=== PATIENT | female | born 1965 | race Caucasian/White ===

== ENCOUNTER 2016-08-03 23:26 | Emergency (ER) | payer SELFPAY ==
[~2016-08-03] VITALS: Ht 157.5 cm; Wt 105.2 kg
[~2016-08-03 23:26] MED LIST: BACTRIM-DS1 EA ORAL; HYDROCHLOROTHIA25 MG ORAL; IBUPROFEN600 MG ORAL; NORVASC10 MG ORAL; TRAMADOL HCL50 MG ORAL; UNOBMED
[2016-08-03 23:45] VITALS: BP 143/86
[2016-08-04] MEDS ORDERED: Cyclobenzaprine 10mg Tab ORAL ONE (00:15)
[2016-08-04] MEDS ORDERED: GABAPENTIN300 MG ORAL (00:19)
[2016-08-04 00:30] VITALS: BP 143/86
--- NOTE | 2016-08-07 08:25 | Emergency Room Report ---
History of Present Illness General Chief Complaint: Lower Extremity Injury Source: Patient Present Illness HPI Patient is a 51-year-old female who presented after increased right lower extremity pain. Patient reported having pain predominantly to her buttock and medial thigh area. Pain had been present for several days. She reports having increased pain after a recently moving a heavy container. She denied any fever. She denied leg pain or numbness. She reports having a prior history of diabetes. Allergies: Coded Allergies: No Known Allergies (Unverified , 08/31/15) Patient History Past Medical History: see triage record Last Menstrual Period: JUL 25 Now: No : 6 Reviewed Nursing Documentation: PMH: Agreed, PSxH: Agreed Nursing Documentation-PMH Hx Hypertension: Yes Hx Diabetes: Yes Review of Systems All Other Systems: negative except mentioned in HPI Physical Exam Vital Signs Date Time Temp Pulse Resp B/P Pulse Ox O2 Delivery O2 Flow Rate FiO2 08/03/16 23:31 98.1 73 18 143/86 98 Room Air General Appearance: well appearing, no apparent distress, alert, GCS 15 Head: normocephalic, atraumatic ENT: hearing grossly normal, normal voice Neck: full range of motion, supple Respiratory: no respiratory distress, speaking full sentences Cardiovascular #1: normal inspection, regular rate, rhythm Gastrointestinal: normal inspection, normal bowel sounds, non tender, soft Musculoskeletal: normal inspection, back normal, digits/nails normal, no calf tenderness Neurologic: normal inspection, oriented x3, responsive, executive creative director III-XII nml as tested, normal gait Psychiatric: mood/affect normal Skin: no rash Medical Decision Making Diagnostic Impression: Primary Impression: Sciatica ER Course Patient presented for back pain. Differential diagnosis included but was not limited to herniated disc, cauda equina syndrome, abdominal aortic aneurysm, perforated ulcer, spinal epidural abscess, spinal stenosis, lumbar fracture, metastatic lesion, pyelonephritis. Patient's benign exam and does not appear to require any further imaging or laboratory testing at this time. Patient appeared to have some sciatica. The patient was given Flexeril while in emergency department. She was given a prescription for Neurontin. The patient is advised to follow up with primary care doctor in 1-2 days. Patient is advised to return if any worsening condition or if any changes in status that are concerning. Last Vital Signs Date Time Temp Pulse Resp B/P Pulse Ox O2 Delivery O2 Flow Rate FiO2 08/04/16 00:30 98.1 75 18 143/86 98 Room Air Status: improved Disposition: HOME, SELF-CARE Condition: Stable Scripts Gabapentin* (GABAPENTIN*) 300 Mg Capsule 300 MG ORAL THREE TIMES A DAY, #30 CAP 0 Refills Prov: Hernandez Hansen 08/04/16 Referrals: NOT CHOSEN IPA/MD,REFERRING (PCP) Departure Forms: Return to Work Return to Work in (Days): 2 Patient Instructions: Hernandez Landrum Aug 07, 2016 08:25
== END 2016-08-04 00:30 | disposition home or self-care (01) ==
LOC: EMR 23:56
DX: M54.30 Sciatica, unspecified side (principal); E11.9 Type 2 diabetes mellitus without complications; I10 Essential (primary) hypertension
CPT/HCPCS: 99283

== ENCOUNTER 2016-09-07 16:01 | Inpatient (IN) | payer MEDICAID ==
[~2016-09-07] VITALS: Ht 157.5 cm; Wt 104.3 kg
[~2016-09-07 16:01] MED LIST changes: +GABAPENTIN300 MG ORAL
[2016-09-07] MEDS ORDERED: ENALAPRIL MALEA10 MG ORAL (16:19)
[2016-09-07] MEDS ORDERED: CARVEDILOL3.125 MG ORAL (16:19)
[2016-09-07 16:25] VITALS: BP 140/93
[2016-09-07] MEDS ORDERED: Mylanta II UD 30ml ORAL ONE (16:30)
[2016-09-07] MEDS ORDERED: Lidocaine 2% Visc 15ml soln ORAL ONE (16:30)
[2016-09-07] MEDS ORDERED: Dicyclomine HCl 10mg/5ml oral soln ORAL ONE (16:30)
[2016-09-07] MEDS ORDERED: Famotidine 20 MG/ 2ML VIAL IVP ONE (16:30)
[2016-09-07 17:15] LABS: BASOPHILS % (AUTO) 0.8 % (0.0-2.0); EOSINOPHILS % (AUTO) 2.6 % (0.0-3.0); LYMPHOCYTES % (AUTO) 20.5 % (20.0-45.0); MEAN CORPUSCULAR HGB CONC 32.6 G/DL (32.0-36.0); MEAN CORPUSCULAR VOLUME 86 FL (80-99); MEAN PLATELET VOLUME 5.8 FL (6.5-10.1); MONOCYTES % (AUTO) 5.8 % (1.0-10.0); NEUTROPHILS % (AUTO) 70.4 % (45.0-75.0); PLATELET COUNT 267 K/UL (150-450); RED BLOOD COUNT 4.63 M/UL (4.20-5.40); RED CELL DISTRIBUTION WIDTH 12.9 % (11.6-14.8); WHITE BLOOD COUNT 10.1 K/UL (4.8-10.8)
[2016-09-07 17:34] LABS: ALANINE AMINOTRANSFERASE 19 U/L (3-33); ALBUMIN/GLOBULIN RATIO 0.8 (1.0-2.7); AMYLASE 106 U/L (10-110); ANION GAP 12 (5-15); ASPARTATE AMINO TRANSFERASE 14 U/L (5-40); CALCIUM 9.4 mg/dL (8.6-10.2); CARBON DIOXIDE 30 mEQ/L (20-30); CHLORIDE 93 mEQ/L (98-107); CREATININE 0.6 mg/dL (0.5-0.9); GLOMERULAR FILTRATION RATE > 60 mL/min (>60); HEMOLYSIS 2; POTASSIUM 3.8 mEQ/L (3.4-4.9); SODIUM 135 mEQ/L (135-145); TOTAL PROTEIN 8.1 g/dL (6.6-8.7)
[2016-09-07 17:47] LABS: LIPASE 406 U/L (< 60)
[2016-09-07 17:47] LABS: APPEARANCE,URINE CLEAR; KETONES,URINE NEGATIVE (NEGATIVE); LEUKOCYTE ESTERASE ,URINE 1+ (NEGATIVE); NITRITE,URINE NEGATIVE (NEGATIVE); PH,URINE 7 (4.5-8.0); PROTEIN,URINE NEGATIVE (NEGATIVE); UROBILINOGEN,URINE NORMAL MG/DL (0.0-1.0)
[2016-09-07] MEDS ORDERED: Morphine Sulfate 4mg/ml Inj IVP ONE (18:00)
--- NOTE | 2016-09-07 18:02 | Emergency Room Report ---
History of Present Illness General Chief Complaint: Abdominal Pain Source: Patient, Medical Record Present Illness HPI The patient is a 51-year-old female with a history of diabetes and hypertension presenting for abdominal pain which began one month prior. The patient states pain began in the mid upper abdomen and has since moved to the left upper abdomen. Patient states pain radiates to the left mid back and also up to the mid chest. The pain is described as a 10 out of 10 dull ache. The patient denies any other symptoms including nausea, vomiting, fever, chills, dysuria, hematuria, vaginal discharge, cough, rash, chest pain, shortness of breath. Patient denies history of GERD. Allergies: Coded Allergies: No Known Allergies (Unverified , 08/31/15) Patient History Past Medical History: see triage record Pertinent Family History: none Last Menstrual Period: 08/19/2016 : 6 Para: 6 Reviewed Nursing Documentation: PMH: Agreed, PSxH: Agreed Nursing Documentation-PMH Hx Hypertension: Yes Hx Diabetes: Yes Review of Systems All Other Systems: negative except mentioned in HPI Physical Exam Vital Signs Date Time Temp Pulse Resp B/P Pulse Ox O2 Delivery O2 Flow Rate FiO2 09/07/16 16:11 98.1 87 16 140/93 99 Sp02 EP Interpretation: reviewed, normal General Appearance: no apparent distress, alert, GCS 15, non-toxic Head: normocephalic, atraumatic Eyes: bilateral eye PERRL, bilateral eye normal inspection Gastrointestinal: normal bowel sounds, soft, no guarding, tenderness - epigastric Genitourinary: normal inspection, no CVA tenderness Musculoskeletal: back normal, gait/station normal, normal range of motion, non- tender Neurologic: alert, oriented x3, responsive, motor strength/tone normal, sensory intact, speech normal Psychiatric: judgement/insight normal, memory normal, mood/affect normal, no suicidal/homicidal ideation Skin: normal color, no rash, warm/dry, well hydrated Lymphatic: no adenopathy Medical Decision Making PA Attestation Dr. Becerra is my supervising physician. Patient management was discussed with my supervising physician Diagnostic Impression: Primary Impression: Acute pancreatitis ER Course The patient is a 51-year-old female with a history of diabetes and hypertension presenting for mid-upper abdominal pain Differential diagnoses considered include but not limited to gastritis, pancreatitis, appendicitis, , UTI PE: Vitals WNL. NAD. Abdomen: Normal appearance. Non distended. No ecchymosis. Normal BS. + TTP over epigastric region only No McBurney point tenderness. No guarding. No CVA tenderness Lab work shows markedly elevated lipase. No leukocytosis. Otherwise unremarkable CT scan is consistent with pancreatitis The patient is given IV fluids and pain medication and will be admitted to this hospital in stable condition. Dr. Becerra has spoken with Dr. Us. Pt agrees to plan Laboratory Tests Test 09/07/16 16:30 09/07/16 16:40 Urine Color Pale yellow Urine Appearance Clear Urine pH 7 (4.5-8.0) Urine Specific [place] 1.005 (1.005-1.035) Urine Protein Negative (NEGATIVE) Urine Glucose (UA) Negative (NEGATIVE) Urine Ketones Negative (NEGATIVE) Urine Occult Blood Negative (NEGATIVE) Urine Nitrite Negative (NEGATIVE) Urine Bilirubin Negative (NEGATIVE) Urine Urobilinogen Normal MG/DL (0.0-1.0) Urine Leukocyte Esterase 1+ (NEGATIVE) H Urine RBC 0-2 /HPF (0 - 2) Urine WBC 2-4 /HPF (0 - 2) Urine Squamous Epithelial Cells Few /LPF (NONE/OCC) Urine Bacteria Few /HPF (NONE) Urine HCG, Qualitative Negative White Blood Count 10.1 K/UL (4.8-10.8) Red Blood Count 4.63 M/UL (4.20-5.40) Hemoglobin 13.0 G/DL (12.0-16.0) Hematocrit 39.8 % (37.0-47.0) Mean Corpuscular Volume 86 FL (80-99) Mean Corpuscular Hemoglobin 28.0 PG (27.0-31.0) Mean Corpuscular Hemoglobin Concent 32.6 G/DL (32.0-36.0) Red Cell Distribution Width 12.9 % (11.6-14.8) Platelet Count 267 K/UL (150-450) Mean Platelet Volume 5.8 FL (6.5-10.1) L Neutrophils (%) (Auto) 70.4 % (45.0-75.0) Lymphocytes (%) (Auto) 20.5 % (20.0-45.0) Monocytes (%) (Auto) 5.8 % (1.0-10.0) Eosinophils (%) (Auto) 2.6 % (0.0-3.0) Basophils (%) (Auto) 0.8 % (0.0-2.0) Sodium Level 135 mEQ/L (135-145) Potassium Level 3.8 mEQ/L (3.4-4.9) Chloride Level 93 mEQ/L (98-107) L Carbon Dioxide Level 30 mEQ/L (20-30) Anion Gap 12 (5-15) Blood Urea Nitrogen 12 mg/dL (7-23) Creatinine 0.6 mg/dL (0.5-0.9) Estimate Glomerular Filtration Rate > 60 mL/min (>60) Glucose Level 107 mg/dL (74-106) H Calcium Level 9.4 mg/dL (8.6-10.2) Total Bilirubin 0.2 mg/dL (0.0-1.2) Aspartate Amino Transferase (AST) 14 U/L (5-40) Alanine Aminotransferase (ALT) 19 U/L (3-33) Alkaline Phosphatase 63 U/L (35-104) Total Protein 8.1 g/dL (6.6-8.7) Albumin 3.7 g/dL (3.5-5.2) Globulin 4.4 g/dL Albumin/Globulin Ratio 0.8 (1.0-2.7) L Amylase Level 106 U/L (10-110) Lipase 406 U/L (< 60) H Lab Results Impression CBC is unremarkable. No leukocytosis CMP unremarkable Lipase is markedly elevated Urinalysis unremarkable CT/MRI/US Diagnostic Results CT/MRI/US Diagnostic Results : Imaging Test Ordered: CT abd/pelvis Impression Findings are consistent with pancreatitis Last Vital Signs Date Time Temp Pulse Resp B/P Pulse Ox O2 Delivery O2 Flow Rate FiO2 09/07/16 16:25 16 140/93 99 09/07/16 16:11 98.1 87 Status: improved Disposition: ADMITTED INPATIENT Condition: Stable Referrals: NOT CHOSEN LEFTY/,REFERRING (PCP) SARITHA AYOUB Sep 07, 2016 18:02
[2016-09-07 18:08] LABS: BACTERIA,URINE FEW /HPF; RBC,URINE 0-2 /HPF (0 - 2); SQUAMOUS EPITHELIAL CELL,UR FEW /LPF (NONE/OCC)
[2016-09-07] MEDS ORDERED: Miralax 17gm pkt ORAL PRN (19:15)
[2016-09-07] MEDS ORDERED: Mylanta II UD 30ml ORAL PRN (19:15)
[2016-09-07] MEDS ORDERED: Nitroglycerin Subl 0.4mg tab (Bottle Of 25) SL PRN (19:15)
[2016-09-07 20:26] VITALS: BP 138/90
[2016-09-07 20:30] VITALS: BP 115/77
[2016-09-07] MEDS: D5 1/2NS 1,000 ML IV SCH (21:48)
[2016-09-07] MEDS: Heparin 5000 units/ml inj SUBQ SCH (21:53)
[2016-09-07] MEDS: Morphine Sulfate 2mg/ml Inj IVP PRN (21:55)
[2016-09-08 00:34] VITALS: BP 109/75
[2016-09-08 04:00] VITALS: BP 112/70
[2016-09-08 07:19] LABS: BASOPHILS % (AUTO) 0.4 % (0.0-2.0); MEAN CORPUSCULAR HGB CONC 33.1 G/DL (32.0-36.0); MEAN CORPUSCULAR VOLUME 85 FL (80-99); MEAN PLATELET VOLUME 6.2 FL (6.5-10.1); MONOCYTES % (AUTO) 8.1 % (1.0-10.0); NEUTROPHILS % (AUTO) 63.5 % (45.0-75.0); PLATELET COUNT 272 K/UL (150-450); RED BLOOD COUNT 4.71 M/UL (4.20-5.40); RED CELL DISTRIBUTION WIDTH 12.7 % (11.6-14.8); WHITE BLOOD COUNT 6.3 K/UL (4.8-10.8)
[2016-09-08 07:34] LABS: ALANINE AMINOTRANSFERASE 45 U/L (3-33); ALBUMIN/GLOBULIN RATIO 0.8 (1.0-2.7); AMYLASE 74 U/L (10-110); ANION GAP 12 (5-15); ASPARTATE AMINO TRANSFERASE 36 U/L (5-40); CARBON DIOXIDE 27 mEQ/L (20-30); CHLORIDE 100 mEQ/L (98-107); CHOLESTEROL 119 mg/dL (< 200); CREATININE 0.5 mg/dL (0.5-0.9); GLOMERULAR FILTRATION RATE > 60 mL/min (>60); HEMOLYSIS 2; LDL CHOLESTEROL (CALC.) 69 mg/dL (60-99); LIPASE 168 U/L (< 60); POTASSIUM 3.8 mEQ/L (3.4-4.9); SODIUM 139 mEQ/L (135-145); TOTAL PROTEIN 7.4 g/dL (6.6-8.7)
[2016-09-08 08:13] VITALS: BP 120/72
[2016-09-08] MEDS: Heparin 5000 units/ml inj SUBQ SCH ×2 (08:22→20:27)
[2016-09-08] MEDS: D5 1/2NS 1,000 ML IV SCH (08:28)
--- NOTE | 2016-09-08 10:57 | Diagnostic Imaging Report ---
Clinical Indication: Left-sided abdominal pain x1 month Technique: No oral contrast utilized, per emergency room physician request IV administration nonionic contrast. Venous phase spiral acquisition obtained through the abdomen and pelvis. Multiplanar reconstructions were generated. Total dose length product 1102 mGycm. CTDIvol(s) 19 mGy Comparison: None Findings: There is slight stranding of the peripancreatic fat, mostly surrounding the tail of the pancreas. No associated fluid collections. No extraluminal gas. The pancreas enhances normally. The gallbladder is surgically absent. No biliary ductal dilatation. No pancreatic ductal dilatation. The appendix is normal. Small bowel loops are minimally prominent, slightly fluid-filled. There is equivocal colonic diverticulosis. No evidence of diverticulitis. No free or loculated intraperitoneal air or fluid. The distal esophagus, stomach, duodenum are unremarkable. The liver is unremarkable. The spleen, adrenals, kidneys are unremarkable. The uterus contains an intrauterine device. There is a fat-containing left adnexal mass measuring 4.3 cm, consistent with a dermoid. There is a 3.4 cm right ovarian cyst. The included lung bases evidence some slight haziness, probably on the basis of atelectatic changes. The bones demonstrate minimal anterolisthesis of L4 on L5. 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 Consider further sonographic followup Minimal basilar pulmonary parenchymal atelectatic changes IUD Equivocal minimal colonic diverticulosis This agrees with the preliminary interpretation provided overnight by Dr. Enriquez The CT scanner at [facility] is accredited by the [employer] and the scans are performed using protocols designed to limit radiation exposure to as low as reasonably achievable to attain images of sufficient resolution adequate for diagnostic evaluation.
[2016-09-08 12:00] VITALS: BP 132/88
--- NOTE | 2016-09-08 13:32 | GI Initial Consult Note ---
History of Present Illness General Date patient seen: Sep 08, 2016 Time patient seen: 09:00 Reason for Hospitalization: Abdominal Pain Referring physician: JUAN BULLARD Reason for Consultation: PANCREATITIS Present Illness HPI The patient is a 51-year-old female with a history of diabetes and hypertension presenting for abdominal pain which began one month prior. The patient states pain began in the mid upper abdomen and has since moved to the left upper abdomen. Patient states pain radiates to the left mid back and also up to the mid chest. The pain is described as a 10 out of 10 dull ache. The patient denies any other symptoms including nausea, vomiting, fever, chills, dysuria, hematuria, vaginal discharge, cough, rash, chest pain, shortness of breath. Patient denies history of GERD. GI CONSULT: HPI as noted above. GI consulted for evaluation of pancreatitis. Pt seen on floor, awake A&Ox NAD ambulatory c/o of improving abdominal LUQ pain. Pt presents today with pancreatitis with lipase elevation initially at 468 now 168. According to the patient, prior to her abdominal pain she had a "throat infection" in which she was taking antibiotics or some sort of medication she received from [facility]. CBC and triglyceride levels unremarkable. Elevated ALT. No other GI complaints at this time. Pt denies hx of DM as noted. No history of endoscopic procedures. Home Meds Active Scripts Gabapentin* (GABAPENTIN*) 300 Mg Capsule, 300 MG ORAL THREE TIMES A DAY, #30 CAP 0 Refills Prov:Hernandez Hansen 08/04/16 Reported Medications Carvedilol* (CARVEDILOL*) 3.125 Mg Tablet, 3.125 MG ORAL TWICE A DAY, TAB 09/07/16 Enalapril Maleate* (ENALAPRIL MALEATE*) 10 Mg Tablet, 10 MG ORAL DAILY, TAB 09/07/16 Hydrochlorothiazide* (HYDROCHLOROTHIAZIDE*) 25 Mg Tablet, 25 MG ORAL DAILY, TAB 08/31/15 Amlodipine Besylate (Norvasc) 10 Mg Tab, 10 MG ORAL DAILY, TAB 08/31/15 Discontinued Reported Medications Unable to Obtain Medications (UNABLE TO OBTAIN MEDS) 1 Ea Ea 04/16/16 Discontinued Scripts Ibuprofen* (MOTRIN*) 600 Mg Tablet, 600 MG ORAL Q8H Y for For Pain, #30 TAB 0 Refills Prov:Hernandez Hansen 04/16/16 Tramadol Hcl* (ULTRAM*) 50 Mg Tablet, 50 MG ORAL Q6H Y for For Pain, #14 TAB 0 Refills Prov:Hernandez Hansen 04/16/16 Trimethoprim/Sulfamethoxazole (Bactrim Ds Tablet) 1 Ea Tab, 1 TAB ORAL TWICE A DAY, #14 TAB Prov:Edwardo Holguin M.D. 08/31/15 Med list reviewed/reconciled: Yes Allergies: Coded Allergies: No Known Allergies (Unverified , 08/31/15) Patient History History Provided By: Patient, Medical Record PMH Narrative Past Medical History: see triage record Pertinent Family History: none Last Menstrual Period: 08/19/2016 : 6 Para: 6 Reviewed Nursing Documentation: PMH: Agreed, PSxH: Agreed Nursing Documentation-PMH Hx Hypertension: Yes Social History: Denies: alcohol use, drug use, other, smoking Review of Systems All Other Systems: negative except mentioned in HPI Physical Exam Vital Signs Date Time Temp Pulse Resp B/P Pulse Ox O2 Delivery O2 Flow Rate FiO2 09/07/16 16:11 98.1 87 16 140/93 99 09/07/16 20:30 Room Air Sp02 EP Interpretation: reviewed Labs Laboratory Tests Test 09/07/16 16:30 09/07/16 16:40 09/08/16 05:40 Urine Color Pale yellow Urine Appearance Clear Urine pH 7 (4.5-8.0) Urine Specific [place] 1.005 (1.005-1.035) Urine Protein Negative (NEGATIVE) Urine Glucose (UA) Negative (NEGATIVE) Urine Ketones Negative (NEGATIVE) Urine Occult Blood Negative (NEGATIVE) Urine Nitrite Negative (NEGATIVE) Urine Bilirubin Negative (NEGATIVE) Urine Urobilinogen Normal MG/DL (0.0-1.0) Urine Leukocyte Esterase 1+ (NEGATIVE) H Urine RBC 0-2 /HPF (0 - 2) Urine WBC 2-4 /HPF (0 - 2) Urine Squamous Epithelial Cells Few /LPF (NONE/OCC) Urine Bacteria Few /HPF (NONE) Urine HCG, Qualitative Negative White Blood Count 10.1 K/UL (4.8-10.8) 6.3 K/UL (4.8-10.8) Red Blood Count 4.63 M/UL (4.20-5.40) 4.71 M/UL (4.20-5.40) Hemoglobin 13.0 G/DL (12.0-16.0) 13.2 G/DL (12.0-16.0) Hematocrit 39.8 % (37.0-47.0) 39.9 % (37.0-47.0) Mean Corpuscular Volume 86 FL (80-99) 85 FL (80-99) Mean Corpuscular Hemoglobin 28.0 PG (27.0-31.0) 28.0 PG (27.0-31.0) Mean Corpuscular Hemoglobin Concent 32.6 G/DL (32.0-36.0) 33.1 G/DL (32.0-36.0) Red Cell Distribution Width 12.9 % (11.6-14.8) 12.7 % (11.6-14.8) Platelet Count 267 K/UL (150-450) 272 K/UL (150-450) Mean Platelet Volume 5.8 FL (6.5-10.1) L 6.2 FL (6.5-10.1) L Neutrophils (%) (Auto) 70.4 % (45.0-75.0) 63.5 % (45.0-75.0) Lymphocytes (%) (Auto) 20.5 % (20.0-45.0) 25.0 % (20.0-45.0) Monocytes (%) (Auto) 5.8 % (1.0-10.0) 8.1 % (1.0-10.0) Eosinophils (%) (Auto) 2.6 % (0.0-3.0) 3.0 % (0.0-3.0) Basophils (%) (Auto) 0.8 % (0.0-2.0) 0.4 % (0.0-2.0) Sodium Level 135 mEQ/L (135-145) 139 mEQ/L (135-145) Potassium Level 3.8 mEQ/L (3.4-4.9) 3.8 mEQ/L (3.4-4.9) Chloride Level 93 mEQ/L (98-107) L 100 mEQ/L (98-107) Carbon Dioxide Level 30 mEQ/L (20-30) 27 mEQ/L (20-30) Anion Gap 12 (5-15) 12 (5-15) Blood Urea Nitrogen 12 mg/dL (7-23) 8 mg/dL (7-23) Creatinine 0.6 mg/dL (0.5-0.9) 0.5 mg/dL (0.5-0.9) Estimat Glomerular Filtration Rate > 60 mL/min (>60) > 60 mL/min (>60) Glucose Level 107 mg/dL (74-106) H 93 mg/dL (74-106) Calcium Level 9.4 mg/dL (8.6-10.2) 9.0 mg/dL (8.6-10.2) Total Bilirubin 0.2 mg/dL (0.0-1.2) 0.3 mg/dL (0.0-1.2) Aspartate Amino Transf (AST/SGOT) 14 U/L (5-40) 36 U/L (5-40) Alanine Aminotransferase (ALT/SGPT) 19 U/L (3-33) 45 U/L (3-33) H Alkaline Phosphatase 63 U/L (35-104) 76 U/L (35-104) Total Protein 8.1 g/dL (6.6-8.7) 7.4 g/dL (6.6-8.7) Albumin 3.7 g/dL (3.5-5.2) 3.3 g/dL (3.5-5.2) L Globulin 4.4 g/dL 4.1 g/dL Albumin/Globulin Ratio 0.8 (1.0-2.7) L 0.8 (1.0-2.7) L Amylase Level 106 U/L (10-110) 74 U/L (10-110) Lipase 406 U/L (< 60) H 168 U/L (< 60) H Activated Partial Thromboplast Time 28 SEC (23-33) Triglycerides Level 52 mg/dL (< 150) Cholesterol Level 119 mg/dL (< 200) LDL Cholesterol 69 mg/dL (60-99) HDL Cholesterol 40 mg/dL (> 60) Cholesterol/HDL Ratio 3.0 (3.3-4.4) L General Appearance: well appearing, no apparent distress, alert, obese Head: normocephalic EENT: normal ENT inspection Neck: full range of motion, supple Respiratory: normal breath sounds, no respiratory distress Gastrointestinal: normal inspection, non tender, soft, normal bowel sounds Genitourinary: normal inspection Neurologic: normal inspection, alert, oriented x3, responsive Psychiatric: normal inspection, judgement/insight normal, memory normal Skin: normal inspection, normal color, no rash, warm/dry Lymphatic: normal inspection, no adenopathy Current Medications Current Medications Medications (Trade) Dose Ordered Sig/Benny Route PRN Reason Start Time Stop Time Status Last Admin Dose Admin Acetaminophen (Tylenol) 650 mg Q4H PRN ORAL fever 09/07/16 19:15 10/07/16 19:14 Al Hydroxide/Mg Hydroxide (Mylanta II) 30 ml Q6H PRN ORAL dyspepsia 09/07/16 19:15 10/07/16 19:14 Amlodipine Besylate (Norvasc) 10 mg DAILY ORAL 09/08/16 09:00 10/08/16 08:59 Carvedilol (Coreg) 3.125 mg TWICE A DAY ORAL 09/07/16 21:00 10/07/16 20:59 09/07/16 22:02 Dextrose (Dextrose 50%) STAT PRN IV Hypoglycemia 09/07/16 19:15 10/07/16 19:14 Dextrose/Sodium Chloride (D5 0.45% NS) 1,000 ml @ 75 mls/hr [id number] IV 09/07/16 20:00 10/07/16 19:59 09/08/16 08:28 Diphenhydramine HCl (Benadryl) 25 mg Q6H PRN ORAL Itching/Pruritis 09/07/16 19:15 10/07/16 19:14 Enalapril Maleate (Vasotec) 10 mg DAILY ORAL 09/08/16 09:00 10/08/16 08:59 Gabapentin 300 mg 300 mg THREE TIMES A DAY ORAL 09/08/16 21:00 10/08/16 20:59 Heparin Sodium (Porcine) (Heparin 5000 units/ml) 5,000 units EVERY 12 HOURS SUBQ 09/07/16 21:00 10/07/16 20:59 09/08/16 08:22 Morphine Sulfate (Morphine Sulfate) 2 mg Q4H PRN IVP Severe Pain (Pain Scale 7-10) 09/07/16 19:15 09/14/16 19:14 09/07/16 21:55 Nitroglycerin (Ntg) 0.4 mg Q5M X 3 DOSES PRN SL Prn Chest Pain 09/07/16 19:15 10/07/16 19:14 Ondansetron HCl (Zofran) 4 mg Q6H PRN IVP Nausea & Vomiting 09/07/16 19:15 10/07/16 19:14 Polyethylene Glycol (Miralax) 17 gm HSPRN PRN ORAL Constipation 09/07/16 19:15 10/07/16 19:14 Temazepam (Restoril) 15 mg HSPRN PRN ORAL Insomnia 09/07/16 19:15 09/14/16 19:14 GI: Plan Problems: (1) Acute pancreatitis Plan denies ETOH use recent abx use from [facility] for "throat infection" lipid panel >> unremarkable initial impression: drug induced acute pancreatitis fu abdominal US, ok for CLD after imaging study CLD, adv as tolerated monitor lipase, downtrending pain management fu labs recommend EGD/colonoscopy, can be done outpatient Discussed with Dr. Lopez. Thank you for referring this patient, we will follow. Radha Taylor N.P. Sep 08, 2016 13:32
--- NOTE | 2016-09-08 15:37 | History and Physical ---
History of Present Illness General Date patient seen: Sep 08, 2016 Reason for Hospitalization: Abdominal Pain Present Illness HPI 51-year-old female with a history of diabetes and hypertension presenting for abdominal pain which began one month ago. The patient states pain began in the mid upper abdomen and has since moved to the left upper abdomen. No other symptoms including nausea, vomiting, fever, chills, dysuria, hematuria, vaginal discharge, cough, rash, chest pain, shortness of breath. Pt was found to have increased lipase and CT of abdomen showed peripancreatic infiltrate c/w pancreatitis. Allergies: Coded Allergies: No Known Allergies (Unverified , 08/31/15) Medication History Scheduled Amlodipine Besylate (Norvasc), 10 MG ORAL DAILY, (Reported) Carvedilol* (Carvedilol*), 3.125 MG ORAL TWICE A DAY, (Reported) Enalapril Maleate* (Enalapril Maleate*), 10 MG ORAL DAILY, (Reported) Gabapentin* (Gabapentin*), 300 MG ORAL THREE TIMES A DAY Hydrochlorothiazide* (Hydrochlorothiazide*), 25 MG ORAL DAILY, (Reported) Discontinued Medications Ibuprofen* (Motrin*), 600 MG ORAL Q8H PRN for For Pain Discontinued Reason: Therapy completed Tramadol Hcl* (Ultram*), 50 MG ORAL Q6H PRN for For Pain Discontinued Reason: Therapy completed Trimethoprim/Sulfamethoxazole (Bactrim Ds Tablet), 1 TAB ORAL TWICE A DAY Discontinued Reason: Therapy completed Unable to Obtain Medications (Unable To Obtain Meds), (Reported) Discontinued Reason: Therapy completed Patient History Healthcare decision maker Resuscitation status Full Code Advanced Directive on File Past Medical/Surgical History Past Medical/Surgical History: (1) HTN (hypertension) (2) Diabetes Review of Systems All Other Systems: negative except mentioned in HPI Physical Exam General Appearance: WD/WN Lines, tubes and drains: peripheral, central line HEENT: normocephalic, anicteric Neck: non-tender Respiratory/Chest: chest wall non-tender, lungs clear Cardiovascular/Chest: normal peripheral pulses, regular rhythm Abdomen: tender Genitourinary/Rectal: normal genital exam Extremities: normal range of motion Last 24 Hour Vital Signs Date Time Temp Pulse Resp B/P Pulse Ox O2 Delivery O2 Flow Rate FiO2 09/08/16 12:00 99.0 84 20 132/88 97 Room Air 09/08/16 09:00 68 120/72 09/08/16 08:27 120/62 09/08/16 08:27 68 120/72 09/08/16 08:13 98.2 68 20 120/72 97 Room Air 09/08/16 04:00 97.8 62 18 112/70 97 Room Air 09/08/16 00:34 98.0 60 18 109/75 95 Room Air 09/07/16 22:25 98.1 09/07/16 22:02 69 115/77 09/07/16 20:30 97.7 69 20 115/77 94 Room Air 09/07/16 20:29 98.1 74 16 138/90 99 09/07/16 20:26 98.1 74 16 138/90 99 09/07/16 19:38 98.1 09/07/16 16:25 16 140/93 99 09/07/16 16:11 98.1 87 16 140/93 99 Intake and Output 09/07/16 09/08/16 19:00 07:00 Intake Total 0 ml 2300 ml Balance 0 ml 2300 ml Intake Oral 0 ml IV Total 2300 ml # Voids 2 Laboratory Tests Test 09/07/16 16:30 09/07/16 16:40 09/08/16 05:40 Urine Color Pale yellow Urine Appearance Clear Urine pH 7 (4.5-8.0) Urine Specific [place] 1.005 (1.005-1.035) Urine Protein Negative (NEGATIVE) Urine Glucose (UA) Negative (NEGATIVE) Urine Ketones Negative (NEGATIVE) Urine Occult Blood Negative (NEGATIVE) Urine Nitrite Negative (NEGATIVE) Urine Bilirubin Negative (NEGATIVE) Urine Urobilinogen Normal MG/DL (0.0-1.0) Urine Leukocyte Esterase 1+ (NEGATIVE) H Urine RBC 0-2 /HPF (0 - 2) Urine WBC 2-4 /HPF (0 - 2) Urine Squamous Epithelial Cells Few /LPF (NONE/OCC) Urine Bacteria Few /HPF (NONE) Urine HCG, Qualitative Negative White Blood Count 10.1 K/UL (4.8-10.8) 6.3 K/UL (4.8-10.8) Red Blood Count 4.63 M/UL (4.20-5.40) 4.71 M/UL (4.20-5.40) Hemoglobin 13.0 G/DL (12.0-16.0) 13.2 G/DL (12.0-16.0) Hematocrit 39.8 % (37.0-47.0) 39.9 % (37.0-47.0) Mean Corpuscular Volume 86 FL (80-99) 85 FL (80-99) Mean Corpuscular Hemoglobin 28.0 PG (27.0-31.0) 28.0 PG (27.0-31.0) Mean Corpuscular Hemoglobin Concent 32.6 G/DL (32.0-36.0) 33.1 G/DL (32.0-36.0) Red Cell Distribution Width 12.9 % (11.6-14.8) 12.7 % (11.6-14.8) Platelet Count 267 K/UL (150-450) 272 K/UL (150-450) Mean Platelet Volume 5.8 FL (6.5-10.1) L 6.2 FL (6.5-10.1) L Neutrophils (%) (Auto) 70.4 % (45.0-75.0) 63.5 % (45.0-75.0) Lymphocytes (%) (Auto) 20.5 % (20.0-45.0) 25.0 % (20.0-45.0) Monocytes (%) (Auto) 5.8 % (1.0-10.0) 8.1 % (1.0-10.0) Eosinophils (%) (Auto) 2.6 % (0.0-3.0) 3.0 % (0.0-3.0) Basophils (%) (Auto) 0.8 % (0.0-2.0) 0.4 % (0.0-2.0) Sodium Level 135 mEQ/L (135-145) 139 mEQ/L (135-145) Potassium Level 3.8 mEQ/L (3.4-4.9) 3.8 mEQ/L (3.4-4.9) Chloride Level 93 mEQ/L (98-107) L 100 mEQ/L (98-107) Carbon Dioxide Level 30 mEQ/L (20-30) 27 mEQ/L (20-30) Anion Gap 12 (5-15) 12 (5-15) Blood Urea Nitrogen 12 mg/dL (7-23) 8 mg/dL (7-23) Creatinine 0.6 mg/dL (0.5-0.9) 0.5 mg/dL (0.5-0.9) Estimat Glomerular Filtration Rate > 60 mL/min (>60) > 60 mL/min (>60) Glucose Level 107 mg/dL (74-106) H 93 mg/dL (74-106) Calcium Level 9.4 mg/dL (8.6-10.2) 9.0 mg/dL (8.6-10.2) Total Bilirubin 0.2 mg/dL (0.0-1.2) 0.3 mg/dL (0.0-1.2) Aspartate Amino Transf (AST/SGOT) 14 U/L (5-40) 36 U/L (5-40) Alanine Aminotransferase (ALT/SGPT) 19 U/L (3-33) 45 U/L (3-33) H Alkaline Phosphatase 63 U/L (35-104) 76 U/L (35-104) Total Protein 8.1 g/dL (6.6-8.7) 7.4 g/dL (6.6-8.7) Albumin 3.7 g/dL (3.5-5.2) 3.3 g/dL (3.5-5.2) L Globulin 4.4 g/dL 4.1 g/dL Albumin/Globulin Ratio 0.8 (1.0-2.7) L 0.8 (1.0-2.7) L Amylase Level 106 U/L (10-110) 74 U/L (10-110) Lipase 406 U/L (< 60) H 168 U/L (< 60) H Activated Partial Thromboplast Time 28 SEC (23-33) Triglycerides Level 52 mg/dL (< 150) Cholesterol Level 119 mg/dL (< 200) LDL Cholesterol 69 mg/dL (60-99) HDL Cholesterol 40 mg/dL (> 60) Cholesterol/HDL Ratio 3.0 (3.3-4.4) L Height (Feet): 5 Height (Inches): 2.00 Weight (Pounds): 230 Medications Current Medications Medications (Trade) Dose Ordered Sig/Benny Route PRN Reason Start Time Stop Time Status Last Admin Dose Admin Acetaminophen (Tylenol) 650 mg Q4H PRN ORAL fever 09/07/16 19:15 10/07/16 19:14 Al Hydroxide/Mg Hydroxide (Mylanta II) 30 ml Q6H PRN ORAL dyspepsia 09/07/16 19:15 10/07/16 19:14 Amlodipine Besylate (Norvasc) 10 mg DAILY ORAL 09/08/16 09:00 10/08/16 08:59 Carvedilol (Coreg) 3.125 mg TWICE A DAY ORAL 09/07/16 21:00 10/07/16 20:59 09/07/16 22:02 Dextrose (Dextrose 50%) STAT PRN IV Hypoglycemia 09/07/16 19:15 10/07/16 19:14 Dextrose/Sodium Chloride (D5 0.45% NS) 1,000 ml @ 75 mls/hr [id number] IV 09/07/16 20:00 10/07/16 19:59 09/08/16 08:28 Diphenhydramine HCl (Benadryl) 25 mg Q6H PRN ORAL Itching/Pruritis 09/07/16 19:15 10/07/16 19:14 Enalapril Maleate (Vasotec) 10 mg DAILY ORAL 09/08/16 09:00 10/08/16 08:59 Gabapentin 300 mg 300 mg THREE TIMES A DAY ORAL 09/08/16 21:00 10/08/16 20:59 Heparin Sodium (Porcine) (Heparin 5000 units/ml) 5,000 units EVERY 12 HOURS SUBQ 09/07/16 21:00 10/07/16 20:59 09/08/16 08:22 Morphine Sulfate (Morphine Sulfate) 2 mg Q4H PRN IVP Severe Pain (Pain Scale 7-10) 09/07/16 19:15 09/14/16 19:14 09/07/16 21:55 Nitroglycerin (Ntg) 0.4 mg Q5M X 3 DOSES PRN SL Prn Chest Pain 09/07/16 19:15 10/07/16 19:14 Ondansetron HCl (Zofran) 4 mg Q6H PRN IVP Nausea & Vomiting 09/07/16 19:15 10/07/16 19:14 Polyethylene Glycol (Miralax) 17 gm HSPRN PRN ORAL Constipation 09/07/16 19:15 10/07/16 19:14 Temazepam (Restoril) 15 mg HSPRN PRN ORAL Insomnia 09/07/16 19:15 09/14/16 19:14 Assessment/Plan Problem List: (1) Acute pancreatitis ICD Codes: K85.90 - Acute pancreatitis without necrosis or infection, unspecified SNOMED: 762656665 (2) Diabetes ICD Codes: E11.9 - Type 2 diabetes mellitus without complications SNOMED: 74632297 (3) HTN (hypertension) ICD Codes: I10 - Essential (primary) hypertension SNOMED: 87664462 Assessment/Plan NPO IV hydration analgesics f/u amylase and lipase GI f/u/. JUAN SON Sep 08, 2016 15:37
[2016-09-08 16:00] VITALS: BP 114/89
--- NOTE | 2016-09-08 16:21 | Diagnostic Imaging Report ---
Indication: Epigastric pain, elevated amylase and lipase Technique: Garcia-scale and duplex images of the upper abdomen were obtained Comparison: CT abdomen pelvis 09/07/2016 Findings: . Gallbladder is surgically absent. . Common bile duct measures 5 mm in diameter. No intrahepatic biliary ductal dilatation. Liver demonstrates normal echogenicity, no focal abnormality. Portal vein and hepatic veins are patent.. Pancreas is unremarkable. 11.6. Left kidney measures 11.1 cm in length. Right kidney measures 11.9 cm length. Both kidneys demonstrate normal echogenicity. There is no hydronephrosis. No focal abnormality. . Non-aneurysmal abdominal aorta. Impression: Surgically absent gallbladder. Negative for dilated ducts No acute or significant abnormality demonstrated.
[2016-09-08 19:09] VITALS: BP 120/72
[2016-09-08] MEDS: Morphine Sulfate 2mg/ml Inj IVP PRN (19:15)
[2016-09-08] MEDS ORDERED: D5 1/2NS 1000ml IV ONE (21:14)
--- NOTE | 2016-09-09 20:07 | Discharge Summary ---
Discharge Summary Hospital Course Date of Admission Sep 07, 2016 at 18:11 Date of Discharge Sep 08, 2016 at 21:15 Admitting Diagnosis pancreatitis HPI Marianne Dunn is a 51 year old female who was admitted on Sep 07, 2016 at 18:11 for Pancreatitis Hospital Course [id number] Discharge Discharge Disposition Patient was discharged to Home (01) Discharge Diagnoses: Olena Kelley NP Sep 09, 2016 20:07
--- NOTE | 2016-09-10 04:18 | Discharge Summary 2 SIG ---
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 BRIEF HOSPITAL COURSE: The patient is a 51-year-old female with history of diabetes, hypertension, presented with abdominal pain that has been ongoing for about a month. The pain began in the mid upper abdomen and has then since moved to the left upper abdomen. No other symptoms. No nausea, vomiting, fever, chills, dysuria, hematuria, vaginal discharge. No chest pain or shortness of breath. On evaluation, she was found to have increased lipase and CT of the abdomen showed peripancreatic infiltrate consistent with pancreatitis. Dr. Lopez was consulted. Lipid panel was unremarkable. Initial impression showed drug induced acute pancreatitis. The patient was eventually started on clear liquid diet and was tolerating diet. Lipase down trended. The patient was was discharged home. FINAL DIAGNOSES: 1. Acute pancreatitis. 2. Diabetes. 3. Hypertension. Tiffani Us M.D. I have been assigned to dictate discharge summary on this account and I was not involved in the patient's management. Olena Kelley N.P. DR: Derrell JOB#: [id number] CC: KATHERINE
== END 2016-09-08 21:15 | disposition home or self-care (01) | DRG 282 ==
LOC: EMR 17:00 → 3E 18:11 → EDBEDREQ 18:42 → 3E 22:13
DX: K85.90 Acute pancreatitis without necrosis or infection, unspecified (principal); I10 Essential (primary) hypertension; E11.9 Type 2 diabetes mellitus without complications
CPT/HCPCS: 36415; 74177; 76700; 80053; 80061; 81003; 81025; 82150; 83690; 85025; 85730

== ENCOUNTER 2016-10-08 22:43 | Emergency (ER) | payer MEDICAID ==
[~2016-10-08] VITALS: Ht 157.5 cm; Wt 102.5 kg
[~2016-10-08 22:43] MED LIST changes: +CARVEDILOL3.125 MG ORAL; +ENALAPRIL MALEA10 MG ORAL
[2016-10-08 23:10] VITALS: BP 145/98
[2016-10-08] MEDS ORDERED: Ketorolac 60mg Inj IM ONE (23:30)
[2016-10-08] MEDS ORDERED: ROBAXIN500 MG PO (23:54)
[2016-10-08 23:56] LABS: APPEARANCE,URINE CLEAR; KETONES,URINE NEGATIVE (NEGATIVE); LEUKOCYTE ESTERASE ,URINE 2+ (NEGATIVE); NITRITE,URINE NEGATIVE (NEGATIVE); PH,URINE 6 (4.5-8.0); PROTEIN,URINE NEGATIVE (NEGATIVE); UROBILINOGEN,URINE NORMAL MG/DL (0.0-1.0)
[2016-10-09] VITALS: BP 139/96
[2016-10-09 00:15] LABS: BACTERIA,URINE FEW /HPF; RBC,URINE 0-2 /HPF (0 - 2); SQUAMOUS EPITHELIAL CELL,UR MANY /LPF (NONE/OCC)
--- NOTE | 2016-10-09 01:14 | Emergency Room Report ---
History of Present Illness General Chief Complaint: Back Pain-No Injury Source: Patient Present Illness HPI The patient is a 51-year-old female presented after increased low back pain. Patient gradual onset of symptoms. Patient had increased pain which radiated to the right thigh. Patient denied any fever. She denied any dysuria. She had not been vomiting. Patient had previously had history of pancreatitis. She denies any recent alcohol use. She reports increased pain with CD position. Pain is worse with movement.She denied recent trauma Allergies: Coded Allergies: No Known Allergies (Unverified , 08/31/15) Patient History Past Medical History: see triage record Last Menstrual Period: September Reviewed Nursing Documentation: PMH: Agreed, PSxH: Agreed Nursing Documentation-PMH Hx Cardiac Problems: No - SCIATICA Hx Hypertension: Yes Hx Diabetes: Yes Hx Cancer: No Hx Gastrointestinal Problems: Yes - Lap band Hx Neurological Problems: No Review of Systems All Other Systems: negative except mentioned in HPI Physical Exam Vital Signs Date Time Temp Pulse Resp B/P Pulse Ox O2 Delivery O2 Flow Rate FiO2 10/08/16 22:57 97.5 66 16 99 Room Air 10/08/16 23:10 145/98 General Appearance: well appearing, no apparent distress, alert, GCS 15, non- toxic Head: normocephalic, atraumatic ENT: hearing grossly normal, normal voice Neck: full range of motion, supple Respiratory: no respiratory distress, speaking full sentences Cardiovascular #1: normal inspection Gastrointestinal: normal inspection, non tender, soft Musculoskeletal: normal inspection, back normal, no calf tenderness Neurologic: normal inspection, alert, oriented x3, responsive, normal gait Psychiatric: mood/affect normal Skin: no rash Medical Decision Making Diagnostic Impression: Primary Impression: Sciatica ER Course Patient presented for low back pain.Differential diagnosis included but was not limited to herniated disc, cauda equina syndrome, abdominal aortic aneurysm, perforated ulcer, spinal epidural abscess, spinal stenosis, lumbar fracture, metastatic lesion, pyelonephritis. Patient's benign exam and does not appear to require any further imaging or laboratory testing at this time. The patient had been noted to have previous CT imaging of the abdomen pelvis approximately one month ago. This showed a dermoid cyst as well as ovarian cyst. Patient was also noted to have a spondylolisthesis of L4-L5. The patient was given Toradol for pain.The patient is advised to follow up with primary care doctor in 1-2 days. Patient is advised to return if any worsening condition or if any changes in status that are concerning. 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 MEDIA TRAFFIC MANAGER for further evaluation of dermoid cyst Labs Test 10/08/16 23:50 Urine Color Pale yellow Urine Appearance Clear Urine pH 6 (4.5-8.0) Urine Specific [place] 1.010 (1.005-1.035) Urine Protein Negative (NEGATIVE) Urine Glucose (UA) Negative (NEGATIVE) Urine Ketones Negative (NEGATIVE) Urine Occult Blood Negative (NEGATIVE) Urine Nitrite Negative (NEGATIVE) Urine Bilirubin Negative (NEGATIVE) Urine Urobilinogen Normal MG/DL (0.0-1.0) Urine Leukocyte Esterase 2+ (NEGATIVE) Urine RBC 0-2 /HPF (0 - 2) Urine WBC 5-10 /HPF (0 - 2) Urine Squamous Epithelial Cells Many /LPF (NONE/OCC) Urine Bacteria Few /HPF (NONE) Last Vital Signs Date Time Temp Pulse Resp B/P Pulse Ox O2 Delivery O2 Flow Rate FiO2 10/09/16 00:00 98.2 81 18 139/96 100 Room Air Status: improved Disposition: HOME, SELF-CARE Condition: Stable Scripts Methocarbamol* (ROBAXIN*) 500 Mg Tablet 500 MG PO TID for For Pain, #21 TAB 0 Refills Prov: Hernandez Hansen 10/08/16 Referrals: NOT CHOSEN IPA/,REFERRING (PCP) Patient Instructions: Sciatica, Ovarian Tumors, Ovarian Cyst Hernandez Hansen October 09, 2016 01:14
== END 2016-10-09 | disposition home or self-care (01) ==
LOC: EMR 23:21
DX: M54.30 Sciatica, unspecified side (principal); M54.5 Low back pain; M79.651 Pain in right thigh; I10 Essential (primary) hypertension; E11.9 Type 2 diabetes mellitus without complications; Z98.84 Bariatric surgery status
CPT/HCPCS: 81003; 96372; 99284

== ENCOUNTER 2016-10-13 21:26 | Emergency (ER) | payer MEDICAID ==
[~2016-10-13] VITALS: Ht 157.5 cm; Wt 103.9 kg
[~2016-10-13 21:26] MED LIST changes: +ROBAXIN500 MG PO
[2016-10-13] MEDS ORDERED: Norco 10mg/325mg tab ORAL ONE (22:15)
[2016-10-13] MEDS ORDERED: Ketorolac 60mg Inj IM ONE (22:15)
[2016-10-13] MEDS ORDERED: IBUPROFEN600 MG ORAL (22:50)
[2016-10-13] MEDS ORDERED: PREDNISONE5 M3 PO (22:57)
[2016-10-13 23:00] VITALS: BP 133/91
--- NOTE | 2016-10-14 04:03 | Emergency Room Report ---
History of Present Illness General Chief Complaint: Pain Source: Patient Present Illness HPI Patient presents with complaints of right mid buttock pain She has had this pain off and on for several months She was here previously and has been somewhat better with pain medication However she feels over the past one to 2 days with tried to stand or ambulate she's having increased pain Denies any fall or trauma denies any chest pain or shortness of breath Denies any saddle paresthesia She has a shooting pain down the right leg as well Denies any knee pain Denies any loss of control of bowel urination denies any rash Allergies: Coded Allergies: No Known Allergies (Unverified , 10/13/16) Patient History Past Medical History: see triage record Pertinent Family History: none Last Menstrual Period: 09/22/16 Reviewed Nursing Documentation: PMH: Agreed, PSxH: Agreed Nursing Documentation-PMH Past Medical History: No History, Except For Hx Cardiac Problems: No - SCIATICA Hx Hypertension: Yes Hx Diabetes: Yes Hx Cancer: No Hx Gastrointestinal Problems: Yes - Lap band Hx Neurological Problems: No Review of Systems All Other Systems: negative except mentioned in HPI Physical Exam Vital Signs Date Time Temp Pulse Resp B/P Pulse Ox O2 Delivery O2 Flow Rate FiO2 10/13/16 21:38 97.9 72 16 133/91 99 Room Air Sp02 EP Interpretation: reviewed, normal General Appearance: well appearing, no apparent distress Head: normocephalic, atraumatic Eyes: bilateral eye EOMI, bilateral eye PERRL ENT: hearing grossly normal, normal pharynx Neck: full range of motion, supple Respiratory: lungs clear Cardiovascular #1: regular rate, rhythm, no edema Gastrointestinal: non tender, soft Musculoskeletal: other - Tender on palpation mid buttock on the right side, also uncomfortable on the right posterior superior iliac crest on palpation no other focal deficit Neurologic: alert, oriented x3, responsive, industrial energy engineer III-XII nml as tested Skin: normal color, no rash Lymphatic: no adenopathy Medical Decision Making Diagnostic Impression: Primary Impression: back pain Additional Impression: sciatic pain ER Course Given the patient's previous presentation I do not see any evidence of imaging in the past therefore CAT scan imaging was obtained multiple nonspecific findings are made including bulging disc, arthritic changes Patient at this time does not show any obvious end organ injury however she does require close outpatient followup with further MRI Specialty consultation is warranted patient was placed on oral steroids along with pain medication and will see her primary physician tomorrow CT/MRI/US Diagnostic Results CT/MRI/US Diagnostic Results : Impression CTL spine: Please refer to the note for full specifics, bulging this is noted, mild impingement nerve root, arthritic changes Last Vital Signs Date Time Temp Pulse Resp B/P Pulse Ox O2 Delivery O2 Flow Rate FiO2 10/13/16 23:00 97.9 16 133/91 99 Room Air 10/13/16 21:38 72 Status: improved Disposition: HOME, SELF-CARE Condition: Improved Scripts Prednisone (PREDNISONE) 5 Mg Tablet 5 MG PO BID for 6 Days, TAB Prov: MARILOU WRAY D.O. 10/13/16 Ibuprofen* (MOTRIN*) 600 Mg Tablet 600 MG ORAL Q8H Y for For Pain, #20 TAB 0 Refills Prov: MARILOU WRAY D.O. 10/13/16 Referrals: NOT CHOSEN IPA/MD,REFERRING (PCP) Patient Instructions: Back Pain, Adult, Sciatica, [id number] Additional Instructions: Patient is provided with the discharge instructions notified to follow up with primary doctor in the next 2-3 days otherwise return to the er with any worsening symptoms. Please note that this report is being documented using DexcomON technology. This can lead to erroneous entry secondary to incorrect interpretation by the dictating instrument. MARILOU WRAY D.O. October 14, 2016 04:03
--- NOTE | 2016-10-14 10:13 | Diagnostic Imaging Report ---
Indication: Back pain Technique: Continuous helical transaxial imaging of the lumbar spine was obtained from the lung bases to the pubic symphysis. No IV contrast was administered. Coronal 2-D reformats were also obtained. Study obtained in a Siemens sensation [address] Total Dose length Product (DLP): [address] Dose Index Volume (CTDIvol): 30 mGy Comparison: None Findings: There is no fracture identified. There is a mild anterolisthesis at L4-5. There is a pars interarticularis defect demonstrated on the left side at L5. Moderate facet hypertrophy and sclerosis at L4-5 L5-S1 noted. Mild narrowing of the L4-5 disc is present. There is suspicion of a central and lateral recess stenosis at L4-5 and these findings may be further evaluated with MR. Intrauterine device is present. There is a fat-containing mass in the left adnexa suspicious for dermoid tumor measuring about 4.8 x 3.2 cm. Impression: No acute injury identified. Degenerative changes of the lower lumbar spine including a left unilateral L5 spondylolysis. Grade 1 spondylolisthesis L4 on L5. Left ovarian dermoid tumor. IUD The CT scanner at [facility] is accredited by the [employer] [employer] and the scans are performed using protocols designed to limit radiation exposure to as low as reasonably achievable to attain images of sufficient resolution adequate for diagnostic evaluation.
== END 2016-10-13 23:05 | disposition home or self-care (01) ==
LOC: EMR 22:10
DX: M54.9 Dorsalgia, unspecified (principal); M54.30 Sciatica, unspecified side; I10 Essential (primary) hypertension; E11.9 Type 2 diabetes mellitus without complications; Z97.5 Presence of (intrauterine) contraceptive device; M47.9 Spondylosis, unspecified; M43.16 Spondylolisthesis, lumbar region; N83.8 Other noninflammatory disorders of ovary, fallopian tube and broad ligament
CPT/HCPCS: 72131; 96372; 99284

== ENCOUNTER 2018-12-11 22:31 | Emergency (ER) | payer MEDICAID ==
[~2018-12-11] VITALS: Ht 157.5 cm; Wt 111.1 kg
[~2018-12-11 22:31] MED LIST changes: +PREDNISONE5 M3 PO
[2018-12-11 22:52] VITALS: BP 177/107
--- NOTE | 2018-12-11 22:54 | NUR ---
ED Nurse Note: Patient presents with complaints of elevated blood pressure with head and earache. Patient is british virgin islander speaking and has daughter at bedside.
[2018-12-11 23:12] VITALS: BP 147/80
--- NOTE | 2018-12-11 23:39 | Emergency Room Report ---
History of Present Illness General Chief Complaint: Headache Source: Patient Present Illness HPI This is a 53-year-old female with history of hypertension. She presents with chief relative headache and high blood pressure. Onset today. She says she get sharp pain in her head. When that happen her blood pressure goes up. Her daughter took blood pressure when she had pain it was 206/113. Patient did not take any extra medication. When she has no headache blood pressure is better. No nausea no vomiting. No fever chills. No chest pain. Denies any other complaint. Allergies: Coded Allergies: No Known Allergies (Unverified , 10/13/16) Patient History Past Medical History: see triage record, old chart reviewed, DM, HTN Past Surgical History: none Pertinent Family History: none Social History: Denies: smoking Last Menstrual Period: 11/22/18 Now: No Immunizations: other Reviewed Nursing Documentation: PMH: Agreed; PSxH: Agreed Nursing Documentation-PMH Hx Cardiac Problems: No - SCIATICA Hx Hypertension: Yes Hx Diabetes: Yes Hx Cancer: No Hx Gastrointestinal Problems: Yes - Lap band Hx Neurological Problems: No Review of Systems Eye: Denies: eye pain, blurred vision ENT: Denies: ear pain, nose congestion, throat swelling Respiratory: Denies: cough, shortness of breath Cardiovascular: Denies: chest pain, palpitations Gastrointestinal: Denies: abdominal pain, diarrhea, nausea, vomiting Musculoskeletal: Denies: back pain, joint pain Skin: Denies: rash Neurological: Reports: headache; Denies: numbness Endocrine: Denies: increased thirst, increased urine Hematologic/Lymphatic: Denies: easy bruising All Other Systems: negative except mentioned in HPI Physical Exam Vital Signs Date Time Temp Pulse Resp B/P (MAP) Pulse Ox O2 Delivery O2 Flow Rate FiO2 12/11/18 22:37 97.7 70 22 177/107 (130) 98 Room Air Vitals with high blood pressure Sp02 EP Interpretation: reviewed, normal General Appearance: well appearing, no apparent distress, alert Head: normocephalic, atraumatic Eyes: bilateral eye PERRL, bilateral eye EOMI ENT: hearing grossly normal, normal pharynx Neck: full range of motion, supple, no meningismus Respiratory: chest non-tender, lungs clear, normal breath sounds Cardiovascular #1: regular rate, rhythm, no murmur Gastrointestinal: normal bowel sounds, non tender, no mass, no organomegaly, no bruit, non-distended Musculoskeletal: back normal, gait/station normal, normal range of motion Psychiatric: mood/affect normal Medical Decision Making Diagnostic Impression: Primary Impression: Headache Qualified Codes: R51 - Headache Additional Impression: HTN (hypertension) Qualified Codes: I10 - Essential (primary) hypertension ER Course She presents with headache and high blood pressure. Without any intervention her blood pressure thakur. No evidence of bleed or meningitis. No evidence of endorgan damage. She does have a history of migraine headache but onset is more frequent now. CT/MRI/US Diagnostic Results CT/MRI/US Diagnostic Results : Imaging Test Ordered: CT head Impression Read by radiologist. Negative. Last Vital Signs Date Time Temp Pulse Resp B/P (MAP) Pulse Ox O2 Delivery O2 Flow Rate FiO2 12/11/18 23:12 97.7 64 15 147/80 100 Room Air Status: improved Disposition: HOME, SELF-CARE Condition: Stable Scripts Amitriptyline HCl (ELAVIL*) 25 Mg Tablet 25 MG ORAL BEDTIME, #30 TAB Prov: Meir Taylor MD 12/12/18 Referrals: NON PHYSICIAN (PCP) Patient Instructions: Migraine Headache Additional Instructions: Follow-up with your doctor in 7 days. Return if symptoms worsen. Meir Taylor MD Dec 11, 2018 23:39
[2018-12-11 23:40] VITALS: BP 120/58
--- NOTE | 2018-12-11 23:44 | NUR ---
ED Nurse Note: Patient tolerated medication well. Patient going down for CT>
[2018-12-11] MEDS ORDERED: Acetaminophen 500mg (ES) tab ORAL ONE (23:45)
--- NOTE | 2018-12-12 00:06 | NUR ---
ED Nurse Note: Patient returned from CT.
[2018-12-12] MEDS ORDERED: AMITRIPTYLINE25 MG ORAL (00:19)
--- NOTE | 2018-12-12 00:44 | NUR ---
ED Nurse Note: Patient cleared for discharge, no s/s of acute distress. Patient verbalized understanding of discharge instructions. Patien ID band removed. patient departed with all personal belongings accompanied by her daughter.
[2018-12-12 00:45] VITALS: BP 120/58
--- NOTE | 2018-12-12 09:25 | Diagnostic Imaging Report ---
Indications: Hypertension and headache for one day Technique: Spiral acquisitions obtained through the brain. Angled axial and coronal 5 x 5 mm slices were reconstructed. Total dose length product 1418.31 mGycm. CTDI vol(s) 70.38 mGy. Dose reduction achieved using automated exposure control Comparison: None. Findings: No acute intracranial hemorrhage or edema, mass effect, nor midline shift. Normal cao-white differentiation. Normal-sized ventricles and extra-axial CSF spaces. Intact calvarium. Visualized orbits and sinuses are unremarkable. Impression: Negative The CT scanner at [facility] is accredited by the [employer] and the scans are performed using protocols designed to limit radiation exposure to as low as reasonably achievable to attain images of sufficient resolution adequate for diagnostic evaluation.
== END 2018-12-12 00:46 | disposition home or self-care (01) ==
LOC: EMR 23:05
DX: R51 Headache (principal); I10 Essential (primary) hypertension; E11.9 Type 2 diabetes mellitus without complications
CPT/HCPCS: 70450; 99284

== ENCOUNTER 2019-11-24 12:58 | Emergency (ER) | payer MEDICAID ==
[~2019-11-24] VITALS: Ht 157.5 cm; Wt 104.3 kg
[~2019-11-24 12:58] MED LIST changes: +AMITRIPTYLINE25 MG ORAL
--- NOTE | 2019-11-24 13:30 | NUR ---
ED Nurse Note: patient walked into ED from home c/o dysuria for 3 days. Pt's VSS, on RA, afebrile on triage. Placed on chair.
[2019-11-24] MEDS ORDERED: Phenazopyridine 200mg tab ORAL ONE (13:45)
[2019-11-24 13:52] VITALS: BP 113/83
[2019-11-24 14:29] LABS: APPEARANCE,URINE SLIGHTLY CLOUDY; BILIRUBIN, URINE NEGATIVE (NEGATIVE); GLUCOSE, URINE (UA) NEGATIVE (NEGATIVE); KETONES,URINE NEGATIVE (NEGATIVE); LEUKOCYTE ESTERASE ,URINE 3+ (NEGATIVE); NITRITE,URINE NEGATIVE (NEGATIVE); PH,URINE 5 (4.5-8.0); PROTEIN,URINE 1+ (NEGATIVE); UROBILINOGEN,URINE NORMAL MG/DL (0.0-1.0)
[2019-11-24 14:37] LABS: COLOR,URINE YELLOW
[2019-11-24] MEDS ORDERED: Ketorolac 30mg Inj IM ONE (14:45)
--- NOTE | 2019-11-24 14:58 | Emergency Room Report ---
History of Present Illness General Chief Complaint: Female Urogenital Problems Source: Patient Present Illness HPI 54 YO Female presents to the ED c/o 8/10 dysuria, x 3 days with body aches, and dull 5/10 in severity lingering GARCIA that responds to Tylenol and was progressive onset. Pt. denies frequency, urgency or hematuria. She reports mild 4/10 in severity lower abdominal fullness, denies tenderness. She denies N/V/F/ C. She denies constipation or diarrhea. Denies vaginal rashes, lesions/sores. Denies pelvic pain or vaginal d/c. 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: No Patient History Past Medical History: see triage record Past Surgical History: none Pertinent Family History: none Now: No Reviewed Nursing Documentation: PMH: Agreed; PSxH: Agreed Nursing Documentation-PMH Past Medical History: No History, Except For Hx Cardiac Problems: No - SCIATICA Hx Hypertension: Yes Hx Diabetes: Yes Hx Cancer: No Hx Gastrointestinal Problems: Yes - Lap band Hx Neurological Problems: No Review of Systems All Other Systems: negative except mentioned in HPI Physical Exam Vital Signs Date Time Temp Pulse Resp B/P (MAP) Pulse Ox O2 Delivery O2 Flow Rate FiO2 11/24/19 13:26 98.2 113/83 (93) Room Air Sp02 EP Interpretation: reviewed, normal General Appearance: no apparent distress, alert, GCS 15, non-toxic Head: normocephalic, atraumatic Eyes: bilateral eye normal inspection, bilateral eye PERRL, bilateral eye other - NO photophobia ENT: hearing grossly normal, normal voice Neck: full range of motion, no meningismus, no bony tend Respiratory: lungs clear, normal breath sounds, speaking full sentences Cardiovascular #1: regular rate, rhythm Gastrointestinal: normal bowel sounds, non tender, soft, non-distended, no guarding Rectal: deferred Genitourinary: normal inspection, no CVA tenderness Musculoskeletal: normal range of motion, gait/station normal, non-tender Neurologic: alert, motor strength/tone normal, oriented x3, sensory intact, responsive, speech normal Psychiatric: judgement/insight normal Skin: no rash, normal color Medical Decision Making PA Attestation Dr. Ley is my supervising Physician whom patient management has been discussed with. Diagnostic Impression: Primary Impression: UTI (urinary tract infection) Qualified Codes: N30.00 - Acute cystitis without hematuria ER Course 54 YO Female presents to the ED c/o 8/10 dysuria, x 3 days with body aches, and dull 5/10 in severity lingering GARCIA that responds to Tylenol and was progressive onset. Pt. denies frequency, urgency or hematuria. She reports mild 4/10 in severity lower abdominal fullness, denies tenderness. She denies N/V/F/ C. She denies constipation or diarrhea. Denies vaginal rashes, lesions/sores. Denies pelvic pain or vaginal d/c. Ddx considered but are not limited to UTi , Pyelo, STI, Stone, Cystitis Vital signs: are WNL, pt. is afebrile H&PE are most consistent with UTI ORDERS: - UA labs are attached -- Positive for UTI increased inflammatory markers moderately with presence of bacteria. ED INTERVENTIONS: -PYridium PO -Toradol IM DISCHARGE: At this time pt. is stable for d/c to home. Will provide printed patient care instructions, and any necessary prescriptions. Care plan and follow up instructions have been discussed with the patient prior to discharge. Labs Test 11/24/19 13:46 Urine Color Yellow Urine Appearance Slightly cloudy Urine pH 5 (4.5-8.0) Urine Specific [place] 1.015 (1.005-1.035) Urine Protein 1+ (NEGATIVE) Urine Glucose (UA) Negative (NEGATIVE) Urine Ketones Negative (NEGATIVE) Urine Blood 3+ (NEGATIVE) Urine Nitrite Negative (NEGATIVE) Urine Bilirubin Negative (NEGATIVE) Urine Urobilinogen Normal MG/DL (0.0-1.0) Urine Leukocyte Esterase 3+ (NEGATIVE) Urine RBC 5-10 /HPF (0 - 2) Urine WBC 20-30 /HPF (0 - 2) Urine Squamous Epithelial Cells Few /LPF (NONE/OCC) Urine Bacteria Few /HPF (NONE) Last Vital Signs Date Time Temp Pulse Resp B/P (MAP) Pulse Ox O2 Delivery O2 Flow Rate FiO2 11/24/19 13:52 98.2 113/83 Room Air Disposition: HOME, SELF-CARE Condition: Stable Scripts Phenazopyridine Hcl* (PYRIDIUM*) 200 Mg Tablet 200 MG ORAL THREE TIMES A DAY for 3 Days, #9 TAB 0 Refills Prov: Patricia Queen 11/24/19 Cephalexin* (KEFLEX*) 500 Mg Capsule 500 MG ORAL EVERY 12 HOURS for 7 Days, #14 CAP 0 Refills Prov: Patricia Queen 11/24/19 Referrals: NON PHYSICIAN (PCP) Angelia Aguilar [facility] Patient Instructions: Urinary Tract Infection Additional Instructions: Take medications as directed. Follow up with a Primary Care Provider in 3-5 days, even if your symptoms have resolved. --Please review list of primary care clinics, if you do not already have a primary care provider Return sooner to ED if new symptoms occur, or current symptoms become worse. - Please note that this Emergency Department Report was dictated using Swyzzlemedical physicist technology software, occasionally this can lead to erroneous entry secondary to interpretation by the dictation equipment. Patricia Queen Nov 24, 2019 14:58
[2019-11-24] MEDS ORDERED: CEPHALEXIN500 MG ORAL (15:00)
[2019-11-24] MEDS ORDERED: PHENAZOPYRIDIN200 MG ORAL (15:00)
[2019-11-24 15:13] VITALS: BP 115/85
--- NOTE | 2019-11-24 15:13 | NUR ---
ER DISCHARGE NOTE: Pt is cleared to be discharged per ERPA, pt is aox4, on room air, with stable vital signs. pt was given dc and prescription instructions, pt was able to verbalize understanding, pt id band removed. pt is able to ambulate with steady gait. pt took all belongings.
== END 2019-11-24 15:13 | disposition home or self-care (01) ==
LOC: EMR 14:27
DX: N30.00 Acute cystitis without hematuria (principal); E11.9 Type 2 diabetes mellitus without complications; I10 Essential (primary) hypertension; M54.30 Sciatica, unspecified side
CPT/HCPCS: 81003; 87086; 87181; 96372; J1885; Z7502; 99283

== ENCOUNTER 2020-01-25 09:19 | Emergency (ER) | payer MEDICAID ==
[~2020-01-25] VITALS: Ht 157.5 cm; Wt 111.1 kg
[~2020-01-25 09:19] MED LIST changes: +CEPHALEXIN500 MG ORAL; +PHENAZOPYRIDIN200 MG ORAL
[2020-01-25] MEDS ORDERED: BACTRIM DS TAB1 EAC1 ORAL (09:39)
--- NOTE | 2020-01-25 09:39 | Emergency Room Report ---
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 Patient History Past Medical History: see triage record Last Menstrual Period: na Reviewed Nursing Documentation: PMH: Agreed; PSxH: Agreed Nursing Documentation-PMH Past Medical History: No History, Except For Hx Cardiac Problems: No - SCIATICA Hx Hypertension: Yes Hx Diabetes: Yes Hx Cancer: No Hx Gastrointestinal Problems: Yes - Lap band Hx Neurological Problems: No Review of Systems All Other Systems: negative except mentioned in HPI Physical Exam Vital Signs Date Time Temp Pulse Resp B/P (MAP) Pulse Ox O2 Delivery O2 Flow Rate FiO2 01/25/20 09:24 98.4 94 15 142/104 (117) 98 Room Air General Appearance: well appearing, no apparent distress Head: normocephalic, atraumatic ENT: hearing grossly normal, normal voice Neck: full range of motion, supple Respiratory: no respiratory distress, speaking full sentences Gastrointestinal: soft, tenderness - Suprapubic tenderness Genitourinary: no CVA tenderness Neurologic: alert, normal gait Psychiatric: mood/affect normal Skin: no rash Medical Decision Making Diagnostic Impression: Primary Impression: UTI (urinary tract infection) Qualified Codes: N39.0 - Urinary tract infection, site not specified ER Course 54-year-old female presents with urinary tract infection, no evidence of pyelonephritis will provide patient with Bactrim based on previous sensitivities on chart review First dose of Bactrim given today disposition home with return precautions follow-up with PCP Last Vital Signs Date Time Temp Pulse Resp B/P (MAP) Pulse Ox O2 Delivery O2 Flow Rate FiO2 01/25/20 09:24 98.4 94 15 142/104 (117) 98 Room Air Disposition: HOME, SELF-CARE Condition: Stable Scripts Trimethoprim/Sulfamethoxazole 160/800* (BACTRIM DS TABLET*) 1 Each Tablet 1 TAB ORAL Q12H, #14 TAB 0 Refills Prov: Balakumar,Kareem MD 01/25/20 Referrals: [facility] Shukri Vinson. [facility] Patient Instructions: Urinary Tract Infection Additional Instructions: The patient was provided with discharge instructions, notified to follow-up with a primary care doctor and or specialist in the next 24-48 hours, and to return to the ED if they have worsening of their symptoms. Please note that this report is being documented using MiMedia technology. This can lead to erroneous entry secondary to incorrect interpretation by the dictating instrument. Kareem Charlton MD Jan 25, 2020 09:39
[2020-01-25] MEDS ORDERED: Bactrim-DS 1 tab ORAL ONE (09:45)
[2020-01-25 09:49] VITALS: BP 138/102
[2020-01-25 09:50] VITALS: BP 126/100
[2020-01-25 09:55] LABS: APPEARANCE,URINE SLIGHTLY CLOUDY; BILIRUBIN, URINE NEGATIVE (NEGATIVE); GLUCOSE, URINE (UA) NEGATIVE (NEGATIVE); KETONES,URINE 1+ (NEGATIVE); LEUKOCYTE ESTERASE ,URINE 3+ (NEGATIVE); NITRITE,URINE NEGATIVE (NEGATIVE); PH,URINE 7 (4.5-8.0); PROTEIN,URINE 2+ (NEGATIVE); UROBILINOGEN,URINE NORMAL MG/DL (0.0-1.0)
[2020-01-25 10:07] LABS: COLOR,URINE YELLOW
== END 2020-01-25 09:50 | disposition home or self-care (01) ==
LOC: EMR 09:40
DX: N39.0 Urinary tract infection, site not specified (principal); E11.9 Type 2 diabetes mellitus without complications; I10 Essential (primary) hypertension; M54.30 Sciatica, unspecified side; Z98.84 Bariatric surgery status; Z79.899 Other long term (current) drug therapy
CPT/HCPCS: 81003; 87086; 87181; Z7502; 99283

== ENCOUNTER → 2020-02-27 | Emergency (ER) | payer MEDICAID, OTHER ==
[~2020-02-27] VITALS: Ht 157.5 cm; Wt 110.7 kg
[~2020-02-27] MED LIST changes: +BACTRIM DS TAB1 EAC1 ORAL; +IBUPROFEN600 M1 ORAL; +Ketorolac 30mg Inj IM ONE; +LIDODERM700 M1 TOPIC; +Methocarbamol 750mg tab ORAL ONE; +ROBAXIN-500MG ORAL
[2020-02-27 15:00] VITALS: BP 130/84
--- NOTE | 2020-02-27 15:50 | NUR ---
ED Nurse Note: pt returned from CT
--- NOTE | 2020-02-27 17:02 | Diagnostic Imaging Report ---
Indications: Back pain, trauma Technique: Spiral acquisitions obtained through the lumbar spine. Multiplanar reconstructions were generated. No IV contrast utilized. Total dose length product 774 mGycm. CTDIvol(s) 23 mGy. Dose reduction achieved using automated exposure control Comparison: 10/13/2016 Findings: There is very slight anterior offset of L4 on L5, presumably due to facet degeneration. Otherwise normal bony alignment. No acute fractures. No dislocations. There is evidence of prior bilateral L5 laminotomy. There is a pars interarticularis defect at L5 on the left which is considerably more evident on the previous exam. At L3-4, there is mild circumferential annular bulge, which does not significantly compromise the spinal canal or neural foramina. There is bilateral facet arthrosis at this level. The disc space is preserved. At L4-5, circumferential annular bulge, facet arthrosis, and the alignment abnormality results in mild narrowing of the spinal canal in both the AP and transverse planes. There is mild to moderate compromise of the bilateral neural foramina. There is degenerative facet arthrosis bilaterally. The disc space is preserved. At L5-S1, there is vacuum disc formation as well as degenerative subchondral sclerosis on both sides of the disc.. There is circumferential annular bulge which does not appear to simply compromise the spinal canal or the neural foramina. There is bilateral facet arthrosis. Included extra spinal soft tissues demonstrate an intrauterine device. There are cholecystectomy clips. Fat-containing left adnexal mass, consistent with a dermoid tumor, is again demonstrated. Impression: No acute bony trauma Degenerative changes as described Postsurgical changes as described Left L5 pars defect, much less evident currently. May have partially healed in the interim although this would be unusual. Incidental findings of intrauterine device, previously reported and unchanged left adnexal presumed dermoid tumor The CT scanner at [facility] is accredited by the [employer] and the scans are performed using protocols designed to limit radiation exposure to as low as reasonably achievable to attain images of sufficient resolution adequate for diagnostic evaluation.
--- NOTE | 2020-02-27 17:16 | Emergency Room Report ---
History of Present Illness General Chief Complaint: Lower Back Pain or Injury Present Illness HPI 54-year-old female with no known significant past medical history other than a p rediabetes currently taking medication here due to low back pain after having a heavy door hit her back at work earlier today. Rates the pain 5 out of 10 without radiation lumbar region. Denies any radiation. Denies any tingling or numbness, saddle paresthesia, urinary bowel incontinence. Denies any fall. Has not taken medication for symptom relief. Is not currently taking any blood thinners. Sitting comfortably with stable vital signs. Is neurovascularly intact. Denies urinary symptoms. 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: No Patient History Past Medical History: see triage record Past Surgical History: none Pertinent Family History: none Now: No Immunizations: UTD Reviewed Nursing Documentation: PMH: Agreed; PSxH: Agreed Nursing Documentation-PMH Hx Cardiac Problems: No - SCIATICA Hx Hypertension: Yes Hx Diabetes: Yes Hx Cancer: No Hx Gastrointestinal Problems: Yes - Lap band Hx Neurological Problems: No Review of Systems All Other Systems: negative except mentioned in HPI Physical Exam Vital Signs Date Time Temp Pulse Resp B/P (MAP) Pulse Ox O2 Delivery O2 Flow Rate FiO2 02/27/20 14:48 97.9 79 18 130/84 (99) 97 Room Air Sp02 EP Interpretation: reviewed, normal General Appearance: no apparent distress, alert, GCS 15, non-toxic Head: normocephalic, atraumatic Eyes: bilateral eye normal inspection, bilateral eye PERRL ENT: normal ENT inspection Neck: full range of motion, supple, thyroid normal, no meningismus, no bony tend, supple/symm/no masses Respiratory: chest non-tender, lungs clear, normal breath sounds, no rhonchi, no respiratory distress, no retraction, speaking full sentences Cardiovascular #1: regular rate, rhythm, no edema Gastrointestinal: soft Genitourinary: no CVA tenderness Musculoskeletal: back normal, no calf tenderness, pelvis stable, no lower extremity edema, non-tender Neurologic: alert, motor strength/tone normal, oriented x3, sensory intact, responsive, speech normal Psychiatric: judgement/insight normal, memory normal, mood/affect normal, no suicidal/homicidal ideation Skin: no rash Lymphatic: no adenopathy Medical Decision Making PA Attestation All my diagnosis and treatment plans were reviewed ad discussed with my supervising physician Dr. Ley Diagnostic Impression: Primary Impression: Lumbar contusion Additional Impressions: Bulging lumbar disc Degenerative lumbar spinal stenosis ER Course 54-year-old female with no known significant past medical history other than a prediabetes currently taking medication here due to low back pain after having a heavy door hit her back at work earlier today. Rates the pain 5 out of 10 without radiation lumbar region. Denies any radiation. Denies any tingling or numbness, saddle paresthesia, urinary bowel incontinence. Denies any fall. Has not taken medication for symptom relief. Is not currently taking any blood thinners. Sitting comfortably with stable vital signs. Is neurovascularly intact. Denies urinary symptoms. Ddx considered but are not limited to: Lumbar spine sprain, strain, fracture, contusion, neuropathy Vital signs: are WNL, pt. is afebrile H&PE are most consistent with: Lumbar contusion, bulging lumbar disc, degenerative lumbar spine stenosis ORDERS: Lumbar spine CT scan noncontrast, Robaxin, lidocaine patch, Motrin ER intervention: Toradol IM, Robaxin, patient is already wearing a lidocaine patch DISCHARGE: At this time pt. is stable for d/c to home. Will provide printed patient care instructions, and any necessary prescriptions. Care plan and follow up instructions have been discussed with the patient prior to discharge. Patient take medication as directed, follow primary care provider business services specialist sales, if worsening symptoms return to the emergency room CT/MRI/US Diagnostic Results CT/MRI/US Diagnostic Results : Imaging Test Ordered: CT L-spine no contrast Impression Lumbar bulging disc, arthritic changes, no acute bony fracture or herniation Last Vital Signs Date Time Temp Pulse Resp B/P (MAP) Pulse Ox O2 Delivery O2 Flow Rate FiO2 02/27/20 15:57 97.9 02/27/20 15:00 18 130/84 97 Room Air 02/27/20 14:48 79 Disposition: HOME, SELF-CARE Condition: Stable Scripts Ibuprofen* (MOTRIN*) 600 Mg Tablet 600 MG ORAL Q8H PRN for FOR PAIN, #30 TAB 0 Refills Prov: Renetta Johnson 02/27/20 Methocarbamol* (ROBAXIN-500*) 500 Mg Tablet 500 MG ORAL TID PRN for For Pain, #15 TAB 0 Refills Prov: Renetta Johnson 02/27/20 Lidocaine Patch* (Lidoderm Patch*) 1 Each Adh..patch 1 PATCH TOPIC DAILY, #30 PATCH Patch(es) may remain in place for up to 12 hours in any 24-hour period. Prov: Renetta Johnson 02/27/20 Referrals: NOT CHOSEN IPA/,REFERRING (PCP) Additional Instructions: Take medication as directed, follow-up with your primary care provider business services specialist sales, if worsening symptoms return to the emergency room Renetta Johnson Feb 27, 2020 17:16
[2020-02-27 17:26] VITALS: BP 128/82
--- NOTE | 2020-02-27 17:26 | NUR ---
ER DISCHARGE NOTE: Patient is cleared to be discharged per ERPA, pt is aox4, on room air, with stable vital signs. pt was given dc and prescription instructions, pt was able to verbalize understanding, pt id band removed. pt is able to ambulate with steady gait. pt took all belongings.
== END | disposition home or self-care (01) ==
LOC: EMR 15:18
DX: S30.0XXA Contusion of lower back and pelvis, initial encounter (principal); W22.8XXA Striking against or struck by other objects, initial encounter; Y92.9 Unspecified place or not applicable; I10 Essential (primary) hypertension; E11.9 Type 2 diabetes mellitus without complications; Z90.49 Acquired absence of other specified parts of digestive tract; Z97.5 Presence of (intrauterine) contraceptive device; M47.816 Spondylosis without myelopathy or radiculopathy, lumbar region; M47.817 Spondylosis without myelopathy or radiculopathy, lumbosacral region; D28.7 Benign neoplasm of other specified female genital organs
CPT/HCPCS: 72131; 96372; 99284; J1885

== ENCOUNTER 2020-07-29 10:00 | Emergency (ER) | payer MEDICAID, OTHER ==
[~2020-07-29] VITALS: Ht 154.9 cm; Wt 108.4 kg
[~2020-07-29 10:00] MED LIST changes: -Ketorolac 30mg Inj IM ONE; -Methocarbamol 750mg tab ORAL ONE
[2020-07-29] MEDS ORDERED: Albuterol ud Inhalation HHN ONE (10:15)
[2020-07-29] MEDS ORDERED: dexAMETHasone 10mg/ml Inj IV ONE (10:15)
[2020-07-29 10:23] VITALS: BP 138/89
[2020-07-29] MEDS ORDERED: AUGMENTIN 875-1 EAC1 ORAL ×2 (10:24→10:30)
[2020-07-29] MEDS ORDERED: IBUPROFEN600 M1 ORAL ×2 (10:24→10:30)
--- NOTE | 2020-07-29 10:28 | Emergency Room Report ---
History of Present Illness General Chief Complaint: Flu Like Symptoms Source: Patient Present Illness HPI Patient is a 55-year-old female presents to the ER complaining of generalized body aches, headache and sore throat for the past 3 days. She denies any neck stiffness or rash. She denies any difficulty swallowing, drooling or changes to her voice. She denies any chest pain or cough. Patient states that she had a positive COVID-19 test 3 months ago. She denies any sick contacts. 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 COVID-19 Screening: Positive COVID-19 COVID-19 Testing Source: 3 months ago Patient History Reviewed Nursing Documentation: PMH: Agreed; PSxH: Agreed Nursing Documentation-PMH Past Medical History: No History, Except For Hx Cardiac Problems: No - SCIATICA Hx Hypertension: Yes Hx Diabetes: Yes Hx Cancer: No Hx Gastrointestinal Problems: Yes - Lap band Hx Neurological Problems: No Review of Systems All Other Systems: negative except mentioned in HPI Physical Exam Vital Signs Date Time Temp Pulse Resp B/P (MAP) Pulse Ox O2 Delivery O2 Flow Rate FiO2 07/29/20 10:05 100.9 108 20 137/92 (107) 91 Room Air Sp02 EP Interpretation: reviewed, normal General Appearance: no apparent distress, alert, GCS 15, non-toxic Head: normocephalic, atraumatic Eyes: bilateral eye normal inspection, bilateral eye PERRL ENT: tonsillar exudate Neck: full range of motion, no meningismus Respiratory: chest non-tender, normal breath sounds, no respiratory distress Cardiovascular #1: normal inspection, tachycardia Gastrointestinal: non tender, soft Rectal: deferred Musculoskeletal: normal range of motion Neurologic: wheelchair van operator first responder III-XII nml as tested, oriented x3 Psychiatric: no suicidal/homicidal ideation Skin: no rash Lymphatic: no adenopathy Medical Decision Making Diagnostic Impression: Primary Impression: Tonsillitis with exudate ER Course Bedside oxygen saturation 98% on room air. There must have been an error in the oxygen saturation in triage. After discussing risks and benefits of further diagnostics, treatment plans, as well as indications for and risks of admission, the patient is agreeable to being discharged home. I have explained that their evaluation and treatment in the emergency department today is an important step towards them achieving better health but that their evaluation today is not intended to replace further evaluation and treatment by a physician in their local clinic. I have explained that while the current findings suggest no immediate life threatening emergency they will require further evaluation and treatment by a physician of their choice in their area. They understand that it will be necessary for them to review the final reports of their ED visit with their clinic physician. We have reviewed indications for return to the Emergency Department. I have explained that additional time may need to pass and/or additional testing as an outpatient may be necessary before a definitive diagnosis can be made. They tell me they are willing to follow up as instructed within the timeframe I recommend. They appear to understand what we discussed. Additionally they understand that if they are unable to be seen by an outpatient physician they are welcome, and in fact should, return to the Emergency Department for a repeat evaluation. The patient is stable at time of discharge. Rhythm Strip Diag. Results Rhythm Strip Time: 10:28 EP Interpretation: yes - Oralia Bruno MD Rate: 95 bpm Rhythm: NSR, no PVC's, no ectopy Last Vital Signs Date Time Temp Pulse Resp B/P (MAP) Pulse Ox O2 Delivery O2 Flow Rate FiO2 07/29/20 10:23 100.9 99 20 138/89 99 Room Air Disposition: HOME, SELF-CARE Condition: Stable Scripts Ibuprofen* (MOTRIN*) 600 Mg Tablet 600 MG ORAL FOUR TIMES A DAY, #30 TAB 0 Refills Prov: Oralia Bruno M.D. 07/29/20 Amoxicillin/Potassium Clav 875-125* (AUGMENTIN 875-125 TABLET*) 1 Each Tablet 1 TAB ORAL TWICE A DAY, #20 TAB Prov: Oralia Bruno M.D. 07/29/20 Referrals: Count Includes [facility] Angelia Aguilar [facility]. [facility] Patient Instructions: Pharyngitis, [id number] Additional Instructions: The patient was provided with discharge instructions, notified to follow-up with a primary care doctor and or specialist in the next 24-48 hours, and to return to the ED if they have worsening of their symptoms. Please note that this report is being documented using [employer] Software technology. This can lead to erroneous entry secondary to incorrect interpretation by the dictating instrument. Oralia Bruno M.D. Jul 29, 2020 10:28
[2020-07-29] MEDS ORDERED: Augmentin 875mg Tab ORAL ONE (10:30)
[2020-07-29 10:40] VITALS: BP 138/89
== END 2020-07-29 10:45 | disposition home or self-care (01) ==
LOC: EMR 10:20
DX: J03.90 Acute tonsillitis, unspecified (principal); I10 Essential (primary) hypertension; E11.9 Type 2 diabetes mellitus without complications; Z86.16 Personal history of COVID-19
CPT/HCPCS: 96374; Z7502; 99284

== ENCOUNTER 2020-08-09 13:47 | Inpatient (IN) | payer MEDICAID ==
[~2020-08-09] VITALS: Ht 152.4 cm; Wt 108.4 kg
[~2020-08-09 13:47] MED LIST changes: +AUGMENTIN 875-1 EAC1 ORAL
--- NOTE | 2020-08-09 14:07 | NUR ---
pt arrives to ER with complaints of abdominal pain x few days. pt denies vomiting, fever, or constipation. pt states symptoms began after completion of antibiotics for throat infection.
[2020-08-09] MEDS ORDERED: Morphine Sulfate 4mg/ml Inj (IV USE ONLY) IVP ONE (14:30)
[2020-08-09 14:38] LABS: APPEARANCE,URINE CLEAR; BASOPHILS % (AUTO) 0.5 % (0.0-2.0); BILIRUBIN, URINE NEGATIVE (NEGATIVE); COLOR,URINE PALE YELLOW; EOSINOPHILS % (AUTO) 2.6 % (0.0-3.0); GLUCOSE, URINE (UA) NEGATIVE (NEGATIVE); HEMATOCRIT 44.8 % (37.0-47.0); HEMOGLOBIN 14.3 G/DL (12.0-16.0); KETONES,URINE NEGATIVE (NEGATIVE); LEUKOCYTE ESTERASE ,URINE 1+ (NEGATIVE); LYMPHOCYTES % (AUTO) 31.6 % (20.0-45.0); MEAN CORPUSCULAR VOLUME 87 FL (80-99); NEUTROPHILS % (AUTO) 59.3 % (45.0-75.0); NITRITE,URINE NEGATIVE (NEGATIVE); PH,URINE 6 (4.5-8.0); PLATELET COUNT 362 K/UL (150-450); PROTEIN,URINE NEGATIVE (NEGATIVE); RED BLOOD COUNT 5.17 M/UL (4.20-5.40); RED CELL DISTRIBUTION WIDTH 12.7 % (11.6-14.8); UROBILINOGEN,URINE NORMAL MG/DL (0.0-1.0)
[2020-08-09 14:51] LABS: ANION GAP 7 mmol/L (5-15); BLOOD UREA NITROGEN 24 mg/dL (7-18); CALCIUM 9.5 MG/DL (8.5-10.1); CARBON DIOXIDE 32 MMOL/L (21-32); CHLORIDE 103 MMOL/L (98-107); CREATININE 0.8 MG/DL (0.55-1.30); POTASSIUM 3.7 MMOL/L (3.5-5.1); SODIUM 142 MMOL/L (136-145)
[2020-08-09 14:55] LABS: ALANINE AMINOTRANSFERASE 24 U/L (12-78); ALBUMIN 3.6 G/DL (3.4-5.0); ALBUMIN/GLOBULIN RATIO 0.8 (1.0-2.7); ALKALINE PHOSPHATASE 69 U/L (46-116); ASPARTATE AMINO TRANSFERASE 14 U/L (15-37); BILIRUBIN,TOTAL 0.1 MG/DL (0.2-1.0)
--- NOTE | 2020-08-09 15:10 | NUR ---
IV placed, bloodwork sent to lab, pt medicated per eMAR. pt placed on continuous cardiac/O2 monitor. EKG performed. fall risk precautions in place.
--- NOTE | 2020-08-09 15:16 | Emergency Room Report ---
History of Present Illness General Chief Complaint: Abdominal Pain Source: Patient Present Illness HPI Patient presents with severe epigastric pain that is been going on for at least 3 days. She gets worse pain when she eats. She has nausea without any vomiting. There has been no diarrhea. She tried taking 2 charcoal tablets a yesterday without help. She is felt chills but no fevers. She denies dysuria. The pain is rated 9/10 at this time. It is epigastric and constant and nonradiating. Sometimes it varies and becomes intense. It is worse when she lays supine. She tried to work today but the pain was too severe so she came and drove herself to the emergency department. Patient initially denied having anything like this before however afterwards states that she was admitted to this hospital in the past with similar complaints. She does not know the diagnosis but states that she had radiologic work-up. She claims that there was some problem possibly with an "infection" of the pancreas. Post gasper. Admitted 2017 for acute pancreatitis. Notes state consideration of drug induced pancreatitis. Patient denies Covid positive contacts. No sore throat, chest pain, palpitations, shortness of breath, joint pain, rashes, depression, anxiety, visual changes, dizziness, headache. H/O HTN and DM. No meds for DM listed. Allergies: Coded Allergies: No Known Allergies (Unverified , 10/13/16) COVID-19 Screening Contact w/high risk pt: No Recent Travel to affected area: No Experienced COVID-19 symptoms?: No COVID-19 Testing performed THEATRICAL AGENT: No COVID-19 Screening: Negative COVID-19 Patient History Past Medical History: see triage record, old chart reviewed Past Surgical History: gasper, other - IUD Social History: Denies: smoking, alcohol use Social History Narrative waldo, drove herself here Reviewed Nursing Documentation: PMH: Agreed; PSxH: Agreed Nursing Documentation-PMH Hx Cardiac Problems: No - SCIATICA Hx Hypertension: Yes Hx Diabetes: Yes Hx Cancer: No Hx Gastrointestinal Problems: Yes - Lap band Hx Neurological Problems: No Review of Systems All Other Systems: negative except mentioned in HPI Physical Exam Vital Signs Date Time Temp Pulse Resp B/P (MAP) Pulse Ox O2 Delivery O2 Flow Rate FiO2 08/09/20 14:04 98.4 94 18 136/89 (105) 96 Room Air Sp02 EP Interpretation: reviewed, normal General Appearance: well appearing, no apparent distress, GCS 15 Head: normocephalic Eyes: bilateral eye normal inspection, bilateral eye PERRL, bilateral eye EOMI ENT: moist mucus membranes Neck: supple Respiratory: lungs clear, normal breath sounds Cardiovascular #1: regular rate, rhythm Cardiovascular #2: 2+ radial (R) Gastrointestinal: normal inspection, normal bowel sounds, no mass, non- distended, no guarding, no rebound, tenderness - epigastric, overweight Genitourinary: no CVA tenderness Musculoskeletal: back normal, normal range of motion, gait/station normal Neurologic: alert, oriented x3, grossly normal Psychiatric: mood/affect normal Skin: no rash, warm/dry Medical Decision Making Diagnostic Impression: Primary Impression: Acute pancreatitis Qualified Codes: K85.90 - Acute pancreatitis without necrosis or infection, unspecified ER Course Patient presents with epigastric pain for 3 days with difficulty eating. Differential includes gastritis, gastroenteritis, pancreatitis, diverticulitis, gallbladder disease amongst others. Patient evaluated with EKG, chest x-ray and labs. CT of the abdomen and pelvis ordered. Patient treated with Zofran, Pepcid and morphine. Serial abdominal exams are indicated. EKG LVH. CXR normal. Normal CBC. Elevated BUN. UA clear. Patient with increased pain. Dilaudid ordered. Elevated lipase. Will admit patient due to pain and pancreatitis. CT unremarkable pancreas. O2 sat drop with sleep. States has episodes of more severe pain but is better now. Oxygen started and IV hydration. Consider HCTZ as possible cause of pancreatitis. Laboratory Tests Test 08/09/20 14:20 White Blood Count 8.0 K/UL (4.8-10.8) Red Blood Count 5.17 M/UL (4.20-5.40) Hemoglobin 14.3 G/DL (12.0-16.0) Hematocrit 44.8 % (37.0-47.0) Mean Corpuscular Volume 87 FL (80-99) Mean Corpuscular Hemoglobin 27.7 PG (27.0-31.0) Mean Corpuscular Hemoglobin Concent 31.9 G/DL (32.0-36.0) L Red Cell Distribution Width 12.7 % (11.6-14.8) Platelet Count 362 K/UL (150-450) Mean Platelet Volume 5.8 FL (6.5-10.1) L Neutrophils (%) (Auto) 59.3 % (45.0-75.0) Lymphocytes (%) (Auto) 31.6 % (20.0-45.0) Monocytes (%) (Auto) 6.0 % (1.0-10.0) Eosinophils (%) (Auto) 2.6 % (0.0-3.0) Basophils (%) (Auto) 0.5 % (0.0-2.0) Prothrombin Time 11.1 SEC (9.30-11.50) Prothrombin Time INR 1.0 (0.9-1.1) Activated Partial Thromboplast Time 26 SEC (23-33) Urine Color Pale yellow Urine Appearance Clear Urine pH 6 (4.5-8.0) Urine Specific [place] 1.015 (1.005-1.035) Urine Protein Negative (NEGATIVE) Urine Glucose (UA) Negative (NEGATIVE) Urine Ketones Negative (NEGATIVE) Urine Blood Negative (NEGATIVE) Urine Nitrite Negative (NEGATIVE) Urine Bilirubin Negative (NEGATIVE) Urine Urobilinogen Normal MG/DL (0.0-1.0) Urine Leukocyte Esterase 1+ (NEGATIVE) H Urine RBC 0 /HPF (0 - 2) Urine WBC 2-4 /HPF (0 - 2) Urine Squamous Epithelial Cells Occasional /LPF Urine Bacteria Occasional /HPF (NONE) Sodium Level 142 MMOL/L (136-145) Potassium Level 3.7 MMOL/L (3.5-5.1) Chloride Level 103 MMOL/L (98-107) Carbon Dioxide Level 32 MMOL/L (21-32) Anion Gap 7 mmol/L (5-15) Blood Urea Nitrogen 24 mg/dL (7-18) H Creatinine 0.8 MG/DL (0.55-1.30) Estimated Glomerular Filtration Rate > 60 mL/min (>60) Glucose Level 79 MG/DL (74-106) Calcium Level 9.5 MG/DL (8.5-10.1) Total Bilirubin 0.1 MG/DL (0.2-1.0) L Aspartate Amino Transferase (AST) 14 U/L (15-37) L Alanine Aminotransferase (ALT) 24 U/L (12-78) Alkaline Phosphatase 69 U/L (46-116) Troponin I 0.000 ng/mL (0.000-0.056) Total Protein 8.3 G/DL (6.4-8.2) H Albumin 3.6 G/DL (3.4-5.0) Globulin 4.7 g/dL Albumin/Globulin Ratio 0.8 (1.0-2.7) L Lipase 647 U/L (73-393) H EKG Diagnostic Results Rate: normal Rhythm: NSR ST Segments: no acute changes - Almost LVH by voltage Rhythm Strip Diag. Results EP Interpretation: yes Rhythm: NSR, no PVC's, no ectopy Chest X-Ray Diagnostic Results Chest X-Ray Diagnostic Results : Chest X-Ray Ordered: Yes # of Views/Limited/Complete: 1 View Indication: Other EP Interpretation: Yes Interpretation: no consolidation, no effusion, no pneumothorax Impression: No acute disease Electronically Signed by: Electronically signed by Edwardo Holguin MD CT/MRI/US Diagnostic Results CT/MRI/US Diagnostic Results : Imaging Test Ordered: abd/pelvis Impression Impression: Previous cholecystectomy. Left ovarian dermoid. IUD in the uterus. Degenerative changes in the spine with grade 1 anterolisthesis of L4 on L5. No evidence of urinary calculi. Normal appendix. Last Vital Signs Date Time Temp Pulse Resp B/P (MAP) Pulse Ox O2 Delivery O2 Flow Rate FiO2 08/09/20 21:05 Room Air 1.0 08/09/20 20:07 98.2 71 17 129/85 99 08/09/20 14:30 97 Status: improved Disposition: ADMITTED INPATIENT Condition: Serious Referrals: [facility],REFERRING (PCP) Edwardo Holguin MD Aug 09, 2020 15:16
[2020-08-09] MEDS ORDERED: HYDROmorphone 1mg/ml Carpuject IVP ONE (15:30)
--- NOTE | 2020-08-09 15:43 | Diagnostic Imaging Report ---
Indication: Reason For Exam: ABD PAIN Technique: Continuous helical scanning was performed without any contrast material from the diaphragms through the pelvis per specific request of the ordering physician. Axial, sagittal, and coronal images were generated. Dose: Total Dose Length Product - DLP [address] Dose Index - CTDIvol(s) 13.60 mGy. Automated exposure control was utilized for dose reduction. Comparison: 09/07/2016 Findings: The liver is unremarkable. The gallbladder is surgically absent. The spleen is normal. The pancreas is unremarkable. Adrenal glands are normal. There are no renal calculi. The aorta is normal in caliber. Retroperitoneum is free of adenopathy. The appendix is normal. There is a calcification in the peritoneum on the left side, likely postinflammatory. The bowel is normal caliber. The bladder is collapsed. There is an IUD in the uterus. A fat-containing mass is noted in the left ovary measuring 5.4 x 3.7 x 4.3 cm. There are also some nonfatty elements within it. No evidence of significant fluid in the pelvis. There is narrowing and sclerosis with vacuum disc at L5-S1. Slight anterolisthesis of L4 on L5 is noted. Posterior facet degenerative change is noted at L4-5 and L5-S1. Impression: Previous cholecystectomy. Left ovarian dermoid. IUD in the uterus. Degenerative changes in the spine with grade 1 anterolisthesis of L4 on L5. No evidence of urinary calculi. Normal appendix. The CT scanner at [facility] is accredited by the [employer] [employer] and the scans are performed using protocols designed to limit radiation exposure to as low as reasonably achievable to attain images of sufficient resolution adequate for diagnostic evaluation.
[2020-08-09 16:08] VITALS: BP 101/62
[2020-08-09 17:34] VITALS: BP 100/64
--- NOTE | 2020-08-09 17:51 | Diagnostic Imaging Report ---
Indication: Chest pain Technique: One view of the chest Comparison: none Findings: Lungs and pleural spaces are clear. Heart size is normal. Impression: No acute process
[2020-08-09 19:01] VITALS: BP 123/91
--- NOTE | 2020-08-09 19:02 | NUR ---
1800: pt family at bedside. pt verbalizes understanding of plan to stay in hospital. pt resting in bed. pt states pain 3/10. refused blanket. pt on continuous monitor. VSS.
[2020-08-09 20:00] VITALS: BP 148/94
--- NOTE | 2020-08-09 20:06 | NUR ---
Pte was admited to the floor room number 420 bed 1 , report given to Stephanie CABALLERO . pte left the ER stable accompained of the tech Romeo. Will continue to monitor.
--- NOTE | 2020-08-09 20:06 | NUR ---
NURSE NOTES: Patient admitted to room from ER. Transferred to bed. Belongings accounted for. Skin intact. Alert oriented x 4. Ambulatory with steady gait. Oriented to room and call light. Complaining of headache 12/14. Dr Helms called regarding admission orders, left message and awaiting response. Addendum: 08/09/20 at 2250 by Melody Stanton RN NURSE NOTES: Admission orders in.
[2020-08-09] MEDS ORDERED: Morphine Sulfate 2mg/ml Inj(IV/IM USE ONLY) IVP PRN (21:30)
[2020-08-09] MEDS ORDERED: Morphine Sulfate 4mg/ml Inj (IV USE ONLY) IVP PRN (21:30)
--- NOTE | 2020-08-09 22:30 | NUR ---
NURSE NOTES: Patient noted with one episode of vomiting, emesis appeared to be food content, light orange/beige in color. Patient verbalized relief, refused zofran.
--- NOTE | 2020-08-09 22:44 | History and Physical Report ---
DATE OF ADMISSION: 08/09/2020 REASON FOR ADMISSION: Pancreatitis. HISTORY OF PRESENT ILLNESS: This is a 55-year-old female who presents with severe epigastric pain ongoing for 3 days. The patient has some nausea, no diarrhea. The patient states she was admitted in the past for several complaints. PAST MEDICAL HISTORY: Notable for sciatica, hypertension, diabetes, and lap band. MEDICATIONS: Reviewed and reconciled. SOCIAL HISTORY: Otherwise negative. PHYSICAL EXAMINATION: GENERAL: A well-developed female. VITAL SIGNS: Reviewed and otherwise negative. NECK: Supple. LUNGS: Clear. CARDIAC: S1 and S2. Regular rate and rhythm. ABDOMEN: Soft. No tenderness. EXTREMITIES: No cyanosis, clubbing, or edema. LABORATORY DATA: Reviewed. HDL is negative. Lipase slightly elevated at 647. IMPRESSION: 1. Pancreatitis. 2. Abdominal pain. 3. Diabetes per history. 4. Hypertension per history. RECOMMENDATION: NPO. GI to see. Review medications, IV hydration, antiemetics, pain control. Resume diet once improved. Further workup pending reevaluation. Claudy Helms M.D. DR: Jayme JOB#: [id number] CC:
[2020-08-10] VITALS: BP 138/85
--- NOTE | 2020-08-10 02:07 | NUR ---
NURSE NOTES: SCD's placed as ordered.
[2020-08-10 04:00] VITALS: BP 140/81
--- NOTE | 2020-08-10 05:39 | NUR ---
NURSE HAND-OFF: Important Events on Shift: admission Patient Status: alert, pleasant Diet: NPO except meds and ice chips Pending Orders: for MD consult with Dr Barba Pending Results/Labs: Pending MD notification: Latest Vital Signs: Temperature 97.7 , Pulse 75 , B/P 140 /81 , Respiratory Rate 17 , O2 SAT 98 , Room Air, O2 Flow Rate 1.0 . Vital Sign Comment: Latest [place] Fall Score: 35 Fall Risk: Medium Risk Safety Measures: Call light Within Reach, Bed Alarm , Side Rails Side Rails x2, Bed position Low and Locked. Fall Precautions: .
[2020-08-10 06:04] LABS: BASOPHILS % (AUTO) 0.6 % (0.0-2.0); HEMATOCRIT 41.2 % (37.0-47.0); HEMOGLOBIN 13.4 G/DL (12.0-16.0); LYMPHOCYTES % (AUTO) 24.9 % (20.0-45.0); MEAN CORPUSCULAR VOLUME 87 FL (80-99); MONOCYTES % (AUTO) 6.2 % (1.0-10.0); NEUTROPHILS % (AUTO) 67.3 % (45.0-75.0); PLATELET COUNT 305 K/UL (150-450); RED BLOOD COUNT 4.75 M/UL (4.20-5.40); RED CELL DISTRIBUTION WIDTH 12.5 % (11.6-14.8); WHITE BLOOD COUNT 7.4 K/UL (4.8-10.8)
[2020-08-10 06:23] LABS: ALANINE AMINOTRANSFERASE 113 U/L (12-78); ALBUMIN 3.1 G/DL (3.4-5.0); ALBUMIN/GLOBULIN RATIO 0.8 (1.0-2.7); ALKALINE PHOSPHATASE 75 U/L (46-116); ANION GAP 6 mmol/L (5-15); ASPARTATE AMINO TRANSFERASE 70 U/L (15-37); BILIRUBIN,TOTAL 0.5 MG/DL (0.2-1.0); BLOOD UREA NITROGEN 14 mg/dL (7-18); CARBON DIOXIDE 29 MMOL/L (21-32); CHLORIDE 107 MMOL/L (98-107); CREATININE 0.6 MG/DL (0.55-1.30); POTASSIUM 3.4 MMOL/L (3.5-5.1); SODIUM 142 MMOL/L (136-145)
--- NOTE | 2020-08-10 06:28 | NUR ---
NURSE NOTES: Potassium 3.[address] Helms, message left, awaiting response.
--- NOTE | 2020-08-10 07:52 | NUR ---
Hydraulic Controls Technician: Patient awake and alert,respirations unlabored.IV fluids infusing as ordered. NO complaint of pain at this time.Call light within reach.
[2020-08-10 08:00] VITALS: BP 136/78
--- NOTE | 2020-08-10 08:54 | General Progress Note ---
Subjective ROS Limited/Unobtainable: Yes Allergies: Coded Allergies: No Known Allergies (Unverified , 10/13/16) Objective Last 24 Hour Vital Signs Date Time Temp Pulse Resp B/P (MAP) Pulse Ox O2 Delivery O2 Flow Rate FiO2 08/10/20 04:00 97.7 75 17 140/81 (100) 98 08/10/20 00:00 98.1 72 17 138/85 (102) 97 08/09/20 21:05 Room Air 1.0 08/09/20 20:07 98.2 71 17 129/85 99 Room Air 08/09/20 20:00 98.2 79 18 148/94 (112) 98 08/09/20 19:01 74 18 123/91 100 Nasal Cannula 1.0 08/09/20 17:34 64 18 100/64 98 Nasal Cannula 1.0 08/09/20 16:08 74 16 101/62 93 Room Air 08/09/20 15:11 98.5 08/09/20 14:30 72 18 Room Air 97 08/09/20 14:04 98.4 94 18 136/89 (105) 96 Room Air Intake and Output 08/09/20 08/10/20 19:00 07:00 Intake Total 1000 ml 800 ml Output Total 50 ml Balance 950 ml 800 ml Intake IV Total 1000 ml 800 ml Output Urine Total 50 ml # Voids 2 Laboratory Tests 08/09/20 14:20: White Blood Count 8.0, Red Blood Count 5.17, Hemoglobin 14.3, Hematocrit 44.8, Mean Corpuscular Volume 87, Mean Corpuscular Hemoglobin 27.7, Mean Corpuscular Hemoglobin Concent 31.9L, Red Cell Distribution Width 12.7, Platelet Count 362, Mean Platelet Volume 5.8L, Neutrophils (%) (Auto) 59.3, Lymphocytes (%) (Auto) 31.6, Monocytes (%) (Auto) 6.0, Eosinophils (%) (Auto) 2.6, Basophils (%) (Auto) 0.5, Prothrombin Time 11.1, Prothromb Time International Ratio 1.0, Activated Partial Thromboplast Time 26, Urine Color Pale yellow, Urine Appearance Clear, Urine pH 6, Urine Specific [place] 1.015, Urine Protein Negative, Urine Glucose (UA) Negative, Urine Ketones Negative, Urine Blood Negative, Urine Nitrite Negative, Urine Bilirubin Negative, Urine Urobilinogen Normal, Urine Leukocyte Esterase 1+H, Urine RBC 0, Urine WBC 2-4, Urine Squamous Epithelial Cells Occasional, Urine Bacteria Occasional, Sodium Level 142, Potassium Level 3.7, Chloride Level 103, Carbon Dioxide Level 32, Anion Gap 7, Blood Urea Nitrogen 24H, Creatinine 0.8, Estimat Glomerular Filtration Rate > 60, Glucose Level 79, Calcium Level 9.5, Total Bilirubin 0.1L, Aspartate Amino Transf (AST/SGOT) 14L, Alanine Aminotransferase (ALT/SGPT) 24, Alkaline Phosphatase 69, Troponin I 0.000, Total Protein 8.3H, Albumin 3.6, Globulin 4.7, Albumin/Globulin Ratio 0.8L, Lipase 647H 08/10/20 05:15: White Blood Count 7.4, Red Blood Count 4.75, Hemoglobin 13.4, Hematocrit 41.2, Mean Corpuscular Volume 87, Mean Corpuscular Hemoglobin 28.3, Mean Corpuscular Hemoglobin Concent 32.6, Red Cell Distribution Width 12.5, Platelet Count 305, Mean Platelet Volume 6.0L, Neutrophils (%) (Auto) 67.3, Lymphocytes (%) (Auto) 24.9, Monocytes (%) (Auto) 6.2, Eosinophils (%) (Auto) 1.0, Basophils (%) (Auto) 0.6, Sodium Level 142, Potassium Level 3.4L, Chloride Level 107, Carbon Dioxide Level 29, Anion Gap 6, Blood Urea Nitrogen 14, Creatinine 0.6, Estimat Glomerular Filtration Rate > 60, Glucose Level 95, Calcium Level 9.0, Total Bi lirubin 0.5, Aspartate Amino Transf (AST/SGOT) 70H, Alanine Aminotransferase (ALT/SGPT) 113H, Alkaline Phosphatase 75, Total Protein 7.2, Albumin 3.1L, Globulin 4.1, Albumin/Globulin Ratio 0.8L, Lipase 210 Height (Feet): 5 Height (Inches): 0.00 Weight (Pounds): 239 General Appearance: no apparent distress EENT: normal ENT inspection Neck: supple Cardiovascular: normal rate Respiratory/Chest: decreased breath sounds Abdomen: hypoactive bowel sounds Extremities: non-tender Assessment/Plan Problem List: (1) Acute pancreatitis ICD Codes: K85.90 - Acute pancreatitis without necrosis or infection, unspecified SNOMED: 317219406 Qualifiers: Qualified Codes: K85.90 - Acute pancreatitis without necrosis or infection, unspecified (2) HTN (hypertension) ICD Codes: I10 - Essential (primary) hypertension SNOMED: 72642738 (3) Diabetes ICD Codes: E11.9 - Type 2 diabetes mellitus without complications SNOMED: 51476730 Assessment/Plan: ? meds related post cholecystectomy clears ivf repeat labs will fu Vish Loepz MD Aug 10, 2020 08:54
--- NOTE | 2020-08-10 10:53 | Consultation ---
History of Present Illness General Date patient seen: Aug 10, 2020 Reason for Hospitalization: Abdominal Pain Present Illness HPI this is a 55 year old female who presented to [facility] with severe epigastric pain that is been going on for at least 3 days. She gets worse pain when she eats. She has nausea without any vomiting. There has been no diarrhea. She tried taking 2 charcoal tablets a yesterday without help. She is felt chills but no fevers. She denies dysuria. The pain is rated 9/10 at this time. It is epigastric and constant and nonradiating. Sometimes it varies and becomes intense. It is worse when she lays supine. She tried to work today but the pain was too severe so she came and drove herself to the emergency department. Patient initially denied having anything like this before however afterwards states that she was admitted to this hospital in the past with similar complaints. She does not know the diagnosis but states that she had radiologic work-up. She claims that there was some problem possibly with an "infection" of the pancreas. Post gasper. Admitted 2016 for acute pancreatitis. Notes state consideration of drug induced pancreatitis. Patient denies Covid positive contacts. No sore throat, chest pain, palpitations, shortness of breath, joint pain, rashes, depression, anxiety, visual changes, dizziness, headache. seen by GI. surgery called toe valuate and assist with care. currently pain improved but cramping epigastric. lipase resolved. no n/v/f/c. Allergies: Coded Allergies: No Known Allergies (Unverified , 10/13/16) COVID-19 Screening Contact w/high risk pt: No Recent Travel to affected area: No Experienced COVID-19 symptoms?: No Medication History Scheduled Amitriptyline HCl (Elavil*), 25 MG ORAL BEDTIME Amlodipine Besylate (Norvasc), 10 MG ORAL DAILY, (Reported) Amoxicillin/Potassium Clav 875-125* (Augmentin 875-125 Tablet*), 1 TAB ORAL TWICE A DAY Carvedilol* (Carvedilol*), 3.125 MG ORAL TWICE A DAY, (Reported) Cephalexin* (Keflex*), 500 MG ORAL EVERY 12 HOURS Enalapril Maleate* (Enalapril Maleate*), 10 MG ORAL DAILY, (Reported) Gabapentin* (Gabapentin*), 300 MG ORAL THREE TIMES A DAY Hydrochlorothiazide* (Hydrochlorothiazide*), 25 MG ORAL DAILY, (Reported) Ibuprofen* (Motrin*), 600 MG ORAL FOUR TIMES A DAY Lidocaine Patch* (Lidoderm Patch*), 1 PATCH TOPIC DAILY Phenazopyridine Hcl* (Pyridium*), 200 MG ORAL THREE TIMES A DAY Trimethoprim/Sulfamethoxazole 160/800* (Bactrim Ds Tablet*), 1 TAB ORAL Q12H Scheduled PRN Ibuprofen* (Motrin*), 600 MG ORAL Q8H PRN for FOR PAIN Methocarbamol* (Robaxin-500*), 500 MG ORAL TID PRN for For Pain Patient History History Provided By: Patient, Medical Record, PMD Healthcare decision maker Resuscitation status Advanced Directive on File Past Medical/Surgical History Past Medical/Surgical History: (1) Superficial phlebitis (2) Sciatica (3) Degenerative lumbar spinal stenosis (4) Bulging lumbar disc (5) Lumbar contusion (6) Tonsillitis with exudate (7) Acute pancreatitis (8) Diabetes (9) HTN (hypertension) Review of Systems Review of Symptoms General ROS: no weight loss or fever Psychological ROS: no depression or mood changes, no memory loss Ophthalmic ROS: no visual changes or eye irritation ENT ROS: no nasal congestion, hearing loss, dizziness Allergy and Immunology ROS: no allergic symptoms or urticaria Hematological and Lymphatic ROS: no swollen glands, unusual bleeding or bruising Endocrine ROS: no polyuria, polydipsia, weight changes, temperature intolerance Respiratory ROS: no cough, shortness of breath, or wheezing Cardiovascular ROS: no chest pain or dyspnea on exertion Gastrointestinal ROS: denies abdominal pain, bright red blood in stool. Musculoskeletal ROS: no myalgias or arthralgias Neurological ROS: no TIA or stroke symptoms Dermatological ROS: no new or changing skin lesions, rashes or pruritis Physical Exam Physical Exam General appearance: alert, cooperative, no distress, appears stated age Head: Normocephalic, without obvious abnormality, atraumatic Eyes: conjunctivae/corneas clear. PERRL, EOM's intact. Fundi benign Throat: Lips, mucosa, and tongue normal. Teeth and gums normal Neck: supple, symmetrical, trachea midline, no adenopathy, thyroid: not enlarged, symmetric, no tenderness/mass/nodules, no carotid bruit and no JVD Lungs: clear to auscultation bilaterally Heart: regular rate and rhythm, S1, S2 normal, no murmur, click, rub or gallop Abdomen: soft, non-tender. Bowel sounds normal. No masses, no organomegaly Extremities: extremities normal, atraumatic, no cyanosis or edema Pulses: 2+ and symmetric Skin: Skin color, texture, turgor normal. No rashes or lesions Neurologic: Grossly normal Last 24 Hour Vital Signs Date Time Temp Pulse Resp B/P (MAP) Pulse Ox O2 Delivery O2 Flow Rate FiO2 08/10/20 09:20 Room Air 08/10/20 04:00 97.7 75 17 140/81 (100) 98 08/10/20 00:00 98.1 72 17 138/85 (102) 97 08/09/20 21:05 Room Air 1.0 08/09/20 20:07 98.2 71 17 129/85 99 Room Air 08/09/20 20:00 98.2 79 18 148/94 (112) 98 08/09/20 19:01 74 18 123/91 100 Nasal Cannula 1.0 08/09/20 17:34 64 18 100/64 98 Nasal Cannula 1.0 08/09/20 16:08 74 16 101/62 93 Room Air 08/09/20 15:11 98.5 08/09/20 14:30 72 18 Room Air 97 08/09/20 14:04 98.4 94 18 136/89 (105) 96 Room Air Intake and Output 08/09/20 08/10/20 19:00 07:00 Intake Total 1000 ml 800 ml Output Total 50 ml Balance 950 ml 800 ml Intake IV Total 1000 ml 800 ml Output Urine Total 50 ml # Voids 2 Laboratory Tests Test 08/09/20 14:20 08/10/20 05:15 White Blood Count 8.0 K/UL (4.8-10.8) 7.4 K/UL (4.8-10.8) Red Blood Count 5.17 M/UL (4.20-5.40) 4.75 M/UL (4.20-5.40) Hemoglobin 14.3 G/DL (12.0-16.0) 13.4 G/DL (12.0-16.0) Hematocrit 44.8 % (37.0-47.0) 41.2 % (37.0-47.0) Mean Corpuscular Volume 87 FL (80-99) 87 FL (80-99) Mean Corpuscular Hemoglobin 27.7 PG (27.0-31.0) 28.3 PG (27.0-31.0) Mean Corpuscular Hemoglobin Concent 31.9 G/DL (32.0-36.0) L 32.6 G/DL (32.0-36.0) Red Cell Distribution Width 12.7 % (11.6-14.8) 12.5 % (11.6-14.8) Platelet Count 362 K/UL (150-450) 305 K/UL (150-450) Mean Platelet Volume 5.8 FL (6.5-10.1) L 6.0 FL (6.5-10.1) L Neutrophils (%) (Auto) 59.3 % (45.0-75.0) 67.3 % (45.0-75.0) Lymphocytes (%) (Auto) 31.6 % (20.0-45.0) 24.9 % (20.0-45.0) Monocytes (%) (Auto) 6.0 % (1.0-10.0) 6.2 % (1.0-10.0) Eosinophils (%) (Auto) 2.6 % (0.0-3.0) 1.0 % (0.0-3.0) Basophils (%) (Auto) 0.5 % (0.0-2.0) 0.6 % (0.0-2.0) Prothrombin Time 11.1 SEC (9.30-11.50) Prothromb Time International Ratio 1.0 (0.9-1.1) Activated Partial Thromboplast Time 26 SEC (23-33) Urine Color Pale yellow Urine Appearance Clear Urine pH 6 (4.5-8.0) Urine Specific [place] 1.015 (1.005-1.035) Urine Protein Negative (NEGATIVE) Urine Glucose (UA) Negative (NEGATIVE) Urine Ketones Negative (NEGATIVE) Urine Blood Negative (NEGATIVE) Urine Nitrite Negative (NEGATIVE) Urine Bilirubin Negative (NEGATIVE) Urine Urobilinogen Normal MG/DL (0.0-1.0) Urine Leukocyte Esterase 1+ (NEGATIVE) H Urine RBC 0 /HPF (0 - 2) Urine WBC 2-4 /HPF (0 - 2) Urine Squamous Epithelial Cells Occasional /LPF Urine Bacteria Occasional /HPF (NONE) Sodium Level 142 MMOL/L (136-145) 142 MMOL/L (136-145) Potassium Level 3.7 MMOL/L (3.5-5.1) 3.4 MMOL/L (3.5-5.1) L Chloride Level 103 MMOL/L (98-107) 107 MMOL/L (98-107) Carbon Dioxide Level 32 MMOL/L (21-32) 29 MMOL/L (21-32) Anion Gap 7 mmol/L (5-15) 6 mmol/L (5-15) Blood Urea Nitrogen 24 mg/dL (7-18) H 14 mg/dL (7-18) Creatinine 0.8 MG/DL (0.55-1.30) 0.6 MG/DL (0.55-1.30) Estimat Glomerular Filtration Rate > 60 mL/min (>60) > 60 mL/min (>60) Glucose Level 79 MG/DL (74-106) 95 MG/DL (74-106) Calcium Level 9.5 MG/DL (8.5-10.1) 9.0 MG/DL (8.5-10.1) Total Bilirubin 0.1 MG/DL (0.2-1.0) L 0.5 MG/DL (0.2-1.0) Aspartate Amino Transf (AST/SGOT) 14 U/L (15-37) L 70 U/L (15-37) H Alanine Aminotransferase (ALT/SGPT) 24 U/L (12-78) 113 U/L (12-78) H Alkaline Phosphatase 69 U/L (46-116) 75 U/L (46-116) Troponin I 0.000 ng/mL (0.000-0.056) Total Protein 8.3 G/DL (6.4-8.2) H 7.2 G/DL (6.4-8.2) Albumin 3.6 G/DL (3.4-5.0) 3.1 G/DL (3.4-5.0) L Globulin 4.7 g/dL 4.1 g/dL Albumin/Globulin Ratio 0.8 (1.0-2.7) L 0.8 (1.0-2.7) L Lipase 647 U/L (73-393) H 210 U/L (73-393) Height (Feet): 5 Height (Inches): 0.00 Weight (Pounds): 239 Medications Current Medications Medications (Trade) Dose Ordered Sig/Benny Route PRN Reason Start Time Stop Time Status Last Admin Dose Admin Morphine Sulfate (Morphine Sulfate) 2 mg Q4H PRN IVP For Pain 08/09/20 21:30 08/16/20 21:29 Morphine Sulfate (Morphine Sulfate) 4 mg EVERY 3 HOURS PRN IVP For Pain (MODERATE/SEVERE) 08/09/20 21:30 08/16/20 21:29 Ondansetron HCl (Zofran) 4 mg Q6H PRN IVP Nausea & Vomiting 08/09/20 21:30 09/08/20 21:29 Sodium Chloride 1,000 ml @ 100 mls/hr Q10H IV 08/09/20 21:30 09/08/20 21:29 08/10/20 04:25 Assessment/Plan Problem List: (1) Acute pancreatitis Assessment & Plan: 55F hx cholecystectomy presented with abdominal pain. epigastric. 3 days. no n/v//f.c lipase elevated now resolved. CT reviewed states feels better but epigastric cramping likely med related okay for diet will follow with exam thank you The liver is unremarkable. The gallbladder is surgically absent. The spleen is normal. The pancreas is unremarkable. Adrenal glands are normal. There are no renal calculi. The aorta is normal in caliber. Retroperitoneum is free of adenopathy. The appendix is normal. There is a calcification in the peritoneum on the left side, likely postinflammatory. The bowel is normal caliber. The bladder is collapsed. There is an IUD in the uterus. A fat-containing mass is noted in the left ovary measuring 5.4 x 3.7 x 4.3 cm. There are also some nonfatty elements within it. No evidence of significant fluid in the pelvis. There is narrowing and sclerosis with vacuum disc at L5-S1. Slight anterolisthesis of L4 on L5 is noted. Posterior facet degenerative change is noted at L4-5 and L5-S1. Impression: Previous cholecystectomy. Left ovarian dermoid. IUD in the uterus. Degenerative changes in the spine with grade 1 anterolisthesis of L4 on L5. No evidence of urinary calculi. Normal appendix. ICD Codes: K85.90 - Acute pancreatitis without necrosis or infection, unspecified SNOMED: 878935170 Qualifiers: Qualified Codes: K85.90 - Acute pancreatitis without necrosis or infection, unspecified (2) Diabetes ICD Codes: E11.9 - Type 2 diabetes mellitus without complications SNOMED: 64994209 (3) HTN (hypertension) ICD Codes: I10 - Essential (primary) hypertension SNOMED: 79827493 (4) Sciatica ICD Codes: M54.30 - Sciatica, unspecified side SNOMED: 83683484 (5) Superficial phlebitis ICD Codes: I80.9 - Phlebitis and thrombophlebitis of unspecified site SNOMED: 70944435 (6) Degenerative lumbar spinal stenosis ICD Codes: M48.061 - Spinal stenosis, lumbar region without neurogenic claudication SNOMED: 201184122 (7) Tonsillitis with exudate ICD Codes: J03.90 - Acute tonsillitis, unspecified SNOMED: 76576899 (8) Bulging lumbar disc ICD Codes: M51.26 - Other intervertebral disc displacement, lumbar region SNOMED: 864804795 (9) Lumbar contusion ICD Codes: S30.0XXA - Contusion of lower back and pelvis, initial encounter SNOMED: 902096643 Evaristo Horn Aug 10, 2020 10:53
[2020-08-10 12:00] VITALS: BP_SYST 130; BP_SYST 140; BP_DIAS 70; BP_DIAS 81
--- NOTE | 2020-08-10 12:50 | Pulmonology Progress Note ---
Subjective ROS Limited/Unobtainable: Yes Allergies: Coded Allergies: No Known Allergies (Unverified , 10/13/16) Objective Last 24 Hour Vital Signs Date Time Temp Pulse Resp B/P (MAP) Pulse Ox O2 Delivery O2 Flow Rate FiO2 08/10/20 12:00 97.2 65 18 130/70 (90) 97 08/10/20 09:20 Room Air 08/10/20 08:00 98.2 73 18 136/78 (97) 96 08/10/20 04:00 97.7 75 17 140/81 (100) 98 08/10/20 00:00 98.1 72 17 138/85 (102) 97 08/09/20 21:05 Room Air 1.0 08/09/20 20:07 98.2 71 17 129/85 99 Room Air 08/09/20 20:00 98.2 79 18 148/94 (112) 98 08/09/20 19:01 74 18 123/91 100 Nasal Cannula 1.0 08/09/20 17:34 64 18 100/64 98 Nasal Cannula 1.0 08/09/20 16:08 74 16 101/62 93 Room Air 08/09/20 15:11 98.5 08/09/20 14:30 72 18 Room Air 97 08/09/20 14:04 98.4 94 18 136/89 (105) 96 Room Air Intake and Output 08/09/20 08/10/20 19:00 07:00 Intake Total 1000 ml 800 ml Output Total 50 ml Balance 950 ml 800 ml Intake IV Total 1000 ml 800 ml Output Urine Total 50 ml # Voids 2 Laboratory Tests 08/09/20 14:20: White Blood Count 8.0, Red Blood Count 5.17, Hemoglobin 14.3, Hematocrit 44.8, Mean Corpuscular Volume 87, Mean Corpuscular Hemoglobin 27.7, Mean Corpuscular Hemoglobin Concent 31.9L, Red Cell Distribution Width 12.7, Platelet Count 362, Mean Platelet Volume 5.8L, Neutrophils (%) (Auto) 59.3, Lymphocytes (%) (Auto) 31.6, Monocytes (%) (Auto) 6.0, Eosinophils (%) (Auto) 2.6, Basophils (%) (Auto) 0.5, Prothrombin Time 11.1, Prothromb Time International Ratio 1.0, Activated Partial Thromboplast Time 26, Urine Color Pale yellow, Urine Appearance Clear, Urine pH 6, Urine Specific [place] 1.015, Urine Protein Negative, Urine Glucose (UA) Negative, Urine Ketones Negative, Urine Blood Negative, Urine Nitrite Negative, Urine Bilirubin Negative, Urine Urobilinogen Normal, Urine Leukocyte Esterase 1+H, Urine RBC 0, Urine WBC 2-4, Urine Squamous Epithelial Cells Occasional, Urine Bacteria Occasional, Sodium Level 142, Potassium Level 3.7, Chloride Level 103, Carbon Dioxide Level 32, Anion Gap 7, Blood Urea Nitrogen 24H, Creatinine 0.8, Estimat Glomerular Filtration Rate > 60, Glucose Level 79, Calcium Level 9.5, Total Bilirubin 0.1L, Aspartate Amino Transf (AST/SGOT) 14L, Alanine Aminotransferase (ALT/SGPT) 24, Alkaline Phosphatase 69, Troponin I 0.000, Total Protein 8.3H, Albumin 3.6, Globulin 4.7, Albumin/Globulin Ratio 0.8L, Lipase 647H 08/10/20 05:15: White Blood Count 7.4, Red Blood Count 4.75, Hemoglobin 13.4, Hematocrit 41.2, Mean Corpuscular Volume 87, Mean Corpuscular Hemoglobin 28.3, Mean Corpuscular Hemoglobin Concent 32.6, Red Cell Distribution Width 12.5, Platelet Count 305, Mean Platelet Volume 6.0L, Neutrophils (%) (Auto) 67.3, Lymphocytes (%) (Auto) 24.9, Monocytes (%) (Auto) 6.2, Eosinophils (%) (Auto) 1.0, Basophils (%) (Auto) 0.6, Sodium Level 142, Potassium Level 3.4L, Chloride Level 107, Carbon Dioxide Level 29, Anion Gap 6, Blood Urea Nitrogen 14, Creatinine 0.6, Estimat Glomerular Filtration Rate > 60, Glucose Level 95, Calcium Level 9.0, Total Bilirubin 0.5, Aspartate Amino Transf (AST/SGOT) 70H, Alanine Aminotransferase (ALT/SGPT) 113H, Alkaline Phosphatase 75, Total Protein 7.2, Albumin 3.1L, Globulin 4.1, Albumin/Globulin Ratio 0.8L, Lipase 210 Current Medications Medications (Trade) Dose Ordered Sig/Benny Route PRN Reason Start Time Stop Time Status Last Admin Dose Admin Morphine Sulfate (Morphine Sulfate) 2 mg Q4H PRN IVP For Pain 08/09/20 21:30 08/16/20 21:29 Morphine Sulfate (Morphine Sulfate) 4 mg EVERY 3 HOURS PRN IVP For Pain (MODERATE/SEVERE) 08/09/20 21:30 08/16/20 21:29 Ondansetron HCl (Zofran) 4 mg Q6H PRN IVP Nausea & Vomiting 08/09/20 21:30 09/08/20 21:29 Sodium Chloride 1,000 ml @ 100 mls/hr Q10H IV 08/09/20 21:30 09/08/20 21:29 08/10/20 04:25 Assessment/Plan Assessment/Plan Progress Note HPI: This is a 55-year-old woman with prior h/o cholecystectomy,admitted with pancreatitis,had c/osevere epigastric pain ongoing for 3 days. Improved symptoms,on clear diet PMH: Notable for sciatica, hypertension, diabetes, and lap band. MEDICATIONS: Reviewed and reconciled. SOCIAL HISTORY: Otherwise negative. PHYSICAL EXAMINATION: Vital signs noted GENERAL: A well-developed female. VITAL SIGNS: Reviewed and otherwise negative. NECK: Supple. LUNGS: Clear. CARDIAC: S1 and S2. Regular rate and rhythm. ABDOMEN: Soft. No tenderness. EXTREMITIES: No cyanosis, clubbing, or edema. LABORATORY: noted Imaging: noted Impression: 1. Pancreatitis. 2. Abdominal pain. 3. Previous Cholecystectomy 4. Diabetes per history. 5. Hypertension per history. Plan: IVF Advance diet per GI antiemetics pain control GI/Surgical follow up [employer] SUPER[employer]OR medications Edwardo Garcia MD Aug 10, 2020 12:50
[2020-08-10 16:44] VITALS: BP 135/82
--- NOTE | 2020-08-10 17:00 | NUR ---
NURSE NOTES: Received report from ADA Phillips.
--- NOTE | 2020-08-10 17:00 | NUR ---
NURSE NOTES: Patient resting,tolerating clear liquid diet,no complaintat this time.Call light within reach.Report given to NELLY CABALLERO
--- NOTE | 2020-08-10 19:10 | NUR ---
NURSE NOTES: Received report from ADA Muro. Pt is in bed A&Ox4, call light within reach, side rails up x2, bed locked and in lowest position. Pt is ambulatory and has BRP. Will continue to monitor.
--- NOTE | 2020-08-10 19:24 | NUR ---
NURSE HAND-OFF: Important Events on Shift:[No c/o pain, No N/V] Patient Status: [stable] Diet: [clear liquid] Pending Orders: [] Pending Results/Labs:[] Pending MD notification:[] Latest Vital Signs: Temperature 98.2 , Pulse 71 , B/P 135 /82 , Respiratory Rate 18 , O2 SAT 95 , Room Air, O2 Flow Rate 1.0 . Vital Sign Comment: [stable] Latest [place] Fall Score: 35 Fall Risk: Medium Risk Safety Measures: Call light Within Reach, Bed Alarm Zone 1, Side Rails Side Rails x2, Bed position Low and Locked. Fall Precautions: Report given to [ADA Brooke].
--- NOTE | 2020-08-10 19:30 | NUR ---
NURSE NOTES: Patient awake in bed, alert and oriented x4, on room air, no complaint of SOB nor pain at this time. IV access on the left antecubital running NS @ 100cc/hr. Instructed to use call light for assistance. Bed in lowest and lock engaged. Will continue to monitor.
--- NOTE | 2020-08-10 19:35 | NUR ---
NURSE HAND-OFF: Important Events on Shift:[] Patient Status: [] Diet: [] Pending Orders: [] Pending Results/Labs:[] Pending MD notification:[] Latest Vital Signs: Temperature 98.2 , Pulse 71 , B/P 135 /82 , Respiratory Rate 18 , O2 SAT 95 , Room Air, O2 Flow Rate 1.0 . Vital Sign Comment: [] Latest Paris Fall Score: 35 Fall Risk: Medium Risk Safety Measures: Call light Within Reach, Bed Alarm Zone 1, Side Rails Side Rails x2, Bed position Low and Locked. Fall Precautions: Report given to ADA Herrera.
[2020-08-10 20:00] VITALS: BP 144/92
[2020-08-11] VITALS: BP 136/86
[2020-08-11 04:34] VITALS: BP 150/85
--- NOTE | 2020-08-11 07:07 | NUR ---
NURSE HAND-OFF: Important Events on Shift: iv fluid Patient Status: stable Diet: Pending Orders: Pending Results/Labs: Pending MD notification: Latest Vital Signs: Temperature 97.9 , Pulse 70 , B/P 150 /85 , Respiratory Rate 19 , O2 SAT 98 , Room Air, O2 Flow Rate 1.0 . Vital Sign Comment: Latest [place] Fall Score: 35 Fall Risk: Medium Risk Safety Measures: Call light Within Reach, Bed Alarm Zone 1, Side Rails Side Rails x2, Bed position Low and Locked. Fall Precautions: Report given to ADA Flood.
--- NOTE | 2020-08-11 07:36 | NUR ---
NURSE NOTES: Handoff received from Nani CABALLERO. PAtient is awake and alert, no signs of acute distress noted, no reports of pain or discomfort at this time. Left AC IV is intact and running IVF as ordered. Bed is low and locked, side rails up x2, call light is within reach.
[2020-08-11 08:00] VITALS: BP 156/94
--- NOTE | 2020-08-11 09:41 | General Progress Note ---
Subjective ROS Limited/Unobtainable: Yes Allergies: Coded Allergies: No Known Allergies (Unverified , 10/13/16) Objective Last 24 Hour Vital Signs Date Time Temp Pulse Resp B/P (MAP) Pulse Ox O2 Delivery O2 Flow Rate FiO2 08/11/20 04:34 97.9 70 19 150/85 (106) 98 08/11/20 00:00 97.6 62 17 136/86 (103) 99 08/10/20 21:00 Room Air 08/10/20 20:00 97.5 76 18 144/92 (109) 98 08/10/20 16:44 98.2 71 18 135/82 (99) 95 08/10/20 12:00 97.2 65 18 130/70 (90) 97 Intake and Output 08/10/20 08/11/20 19:00 07:00 Intake Total 1260 ml 1300 ml Balance 1260 ml 1300 ml Intake Oral 360 ml 200 ml IV Total 900 ml 1100 ml # Voids 4 3 Height (Feet): 5 Height (Inches): 0.00 Weight (Pounds): 239 General Appearance: no apparent distress EENT: normal ENT inspection Neck: supple Cardiovascular: normal rate Respiratory/Chest: decreased breath sounds Abdomen: normal bowel sounds, non tender, soft Extremities: non-tender Assessment/Plan Problem List: (1) Acute pancreatitis ICD Codes: K85.90 - Acute pancreatitis without necrosis or infection, unspecified SNOMED: 614035890 Qualifiers: Qualified Codes: K85.90 - Acute pancreatitis without necrosis or infection, unspecified (2) HTN (hypertension) ICD Codes: I10 - Essential (primary) hypertension SNOMED: 65979354 (3) Diabetes ICD Codes: E11.9 - Type 2 diabetes mellitus without complications SNOMED: 26663248 Assessment/Plan: ? meds related post cholecystectomy advance diet ivf repeat labs will Vish Beck MD Aug 11, 2020 09:41
[2020-08-11 10:30] LABS: BASOPHILS % (AUTO) 0.6 % (0.0-2.0); EOSINOPHILS % (AUTO) 2.2 % (0.0-3.0); HEMATOCRIT 44.9 % (37.0-47.0); HEMOGLOBIN 14.4 G/DL (12.0-16.0); LYMPHOCYTES % (AUTO) 31.9 % (20.0-45.0); MEAN CORPUSCULAR VOLUME 87 FL (80-99); NEUTROPHILS % (AUTO) 60.3 % (45.0-75.0); PLATELET COUNT 303 K/UL (150-450); RED BLOOD COUNT 5.14 M/UL (4.20-5.40); RED CELL DISTRIBUTION WIDTH 12.8 % (11.6-14.8); WHITE BLOOD COUNT 5.4 K/UL (4.8-10.8)
[2020-08-11 10:51] LABS: ALANINE AMINOTRANSFERASE 76 U/L (12-78); ALBUMIN 3.2 G/DL (3.4-5.0); ALBUMIN/GLOBULIN RATIO 0.7 (1.0-2.7); ALKALINE PHOSPHATASE 77 U/L (46-116); AMYLASE 34 U/L (25-115); ANION GAP 7 mmol/L (5-15); ASPARTATE AMINO TRANSFERASE 26 U/L (15-37); BILIRUBIN,TOTAL 0.4 MG/DL (0.2-1.0); BLOOD UREA NITROGEN 9 mg/dL (7-18); CALCIUM 8.8 MG/DL (8.5-10.1); CARBON DIOXIDE 30 MMOL/L (21-32); CHLORIDE 107 MMOL/L (98-107); CREATININE 0.6 MG/DL (0.55-1.30); POTASSIUM 3.8 MMOL/L (3.5-5.1); SODIUM 144 MMOL/L (136-145)
--- NOTE | 2020-08-11 11:03 | Surgery Progress Note ---
Surgery Progress Note Subjective Symptoms: improved, tolerating diet, passing flatus, pain decreased Objective Last 24 Hour Vital Signs Date Time Temp Pulse Resp B/P (MAP) Pulse Ox O2 Delivery O2 Flow Rate FiO2 08/11/20 09:00 Room Air 08/11/20 04:34 97.9 70 19 150/85 (106) 98 08/11/20 00:00 97.6 62 17 136/86 (103) 99 08/10/20 21:00 Room Air 08/10/20 20:00 97.5 76 18 144/92 (109) 98 08/10/20 16:44 98.2 71 18 135/82 (99) 95 08/10/20 12:00 97.2 65 18 130/70 (90) 97 I&O Intake and Output 08/10/20 08/11/20 19:00 07:00 Intake Total 1260 ml 1300 ml Balance 1260 ml 1300 ml Intake Oral 360 ml 200 ml IV Total 900 ml 1100 ml # Voids 4 3 Cardiovascular: RSR Respiratory: clear Abdomen: soft, flat, non-tender, present bowel sounds, non-distended Extremities: no edema, no tenderness, no cyanosis Laboratory Tests Test 08/11/20 10:00 White Blood Count 5.4 K/UL (4.8-10.8) Red Blood Count 5.14 M/UL (4.20-5.40) Hemoglobin 14.4 G/DL (12.0-16.0) Hematocrit 44.9 % (37.0-47.0) Mean Corpuscular Volume 87 FL (80-99) Mean Corpuscular Hemoglobin 28.0 PG (27.0-31.0) Mean Corpuscular Hemoglobin Concent 32.0 G/DL (32.0-36.0) Red Cell Distribution Width 12.8 % (11.6-14.8) Platelet Count 303 K/UL (150-450) Mean Platelet Volume 6.3 FL (6.5-10.1) L Neutrophils (%) (Auto) 60.3 % (45.0-75.0) Lymphocytes (%) (Auto) 31.9 % (20.0-45.0) Monocytes (%) (Auto) 5.0 % (1.0-10.0) Eosinophils (%) (Auto) 2.2 % (0.0-3.0) Basophils (%) (Auto) 0.6 % (0.0-2.0) Sodium Level 144 MMOL/L (136-145) Potassium Level 3.8 MMOL/L (3.5-5.1) Chloride Level 107 MMOL/L (98-107) Carbon Dioxide Level 30 MMOL/L (21-32) Anion Gap 7 mmol/L (5-15) Blood Urea Nitrogen 9 mg/dL (7-18) Creatinine 0.6 MG/DL (0.55-1.30) Estimat Glomerular Filtration Rate > 60 mL/min (>60) Glucose Level 110 MG/DL (74-106) H Calcium Level 8.8 MG/DL (8.5-10.1) Total Bilirubin 0.4 MG/DL (0.2-1.0) Aspartate Amino Transf (AST/SGOT) 26 U/L (15-37) Alanine Aminotransferase (ALT/SGPT) 76 U/L (12-78) Alkaline Phosphatase 77 U/L (46-116) Total Protein 7.7 G/DL (6.4-8.2) Albumin 3.2 G/DL (3.4-5.0) L Globulin 4.5 g/dL Albumin/Globulin Ratio 0.7 (1.0-2.7) L Amylase Level 34 U/L (25-115) Lipase 204 U/L (73-393) Plan Problems: (1) Acute pancreatitis Assessment & Plan: 55F hx cholecystectomy presented with abdominal pain. epigastric. 3 days. no n/v//f.c lipase elevated now resolved. CT reviewed states feels better but epigastric cramping likely med related okay for diet will follow with exam thank you The liver is unremarkable. The gallbladder is surgically absent. The spleen is normal. The pancreas is unremarkable. Adrenal glands are normal. There are no renal calculi. The aorta is normal in caliber. Retroperitoneum is free of adenopathy. The appendix is normal. There is a calcification in the peritoneum on the left side, likely postinflammatory. The bowel is normal caliber. The bladder is collapsed. There is an IUD in the uterus. A fat-containing mass is noted in the left ovary measuring 5.4 x 3.7 x 4.3 cm. There are also some nonfatty elements within it. No evidence of significant fluid in the pelvis. There is narrowing and sclerosis with vacuum disc at L5-S1. Slight anterolisthesis of L4 on L5 is noted. Posterior facet degenerative change is noted at L4-5 and L5-S1. Impression: Previous cholecystectomy. Left ovarian dermoid. IUD in the uterus. Degenerative changes in the spine with grade 1 anterolisthesis of L4 on L5. No evidence of urinary calculi. Normal appendix. (2) Diabetes (3) HTN (hypertension) (4) Sciatica (5) Superficial phlebitis (6) Degenerative lumbar spinal stenosis (7) Tonsillitis with exudate (8) Bulging lumbar disc (9) Lumbar contusion Evaristo Horn Aug 11, 2020 11:03
[2020-08-11 12:00] VITALS: BP 138/82
--- NOTE | 2020-08-11 15:21 | NUR ---
CASE MANAGEMENT: INITIAL REVIEW 55 YO F FROM HOME CC: ABD PAIN SI:PANCREATITIS VS: T 98.4 HR 94 RR 18 B/O 136/89 SATS 96% ON RA LABS: LIPASE 647 BUN 24 IS: ZOFRAN IV X1 PEPCID IV X1 MORPHINE IV X1 NS BOLUS X1 DILAUDID X1 PATIENT ADMITTED TO MED/SURG 08/09/2020 @ 1553
[2020-08-11 16:00] VITALS: BP 147/88
--- NOTE | 2020-08-11 16:13 | Pulmonology Progress Note ---
Subjective ROS Limited/Unobtainable: Yes Allergies: Coded Allergies: No Known Allergies (Unverified , 10/13/16) Objective Last 24 Hour Vital Signs Date Time Temp Pulse Resp B/P (MAP) Pulse Ox O2 Delivery O2 Flow Rate FiO2 08/11/20 09:00 Room Air 08/11/20 04:34 97.9 70 19 150/85 (106) 98 08/11/20 00:00 97.6 62 17 136/86 (103) 99 08/10/20 21:00 Room Air 08/10/20 20:00 97.5 76 18 144/92 (109) 98 08/10/20 16:44 98.2 71 18 135/82 (99) 95 Intake and Output 08/10/20 08/11/20 19:00 07:00 Intake Total 1260 ml 1300 ml Balance 1260 ml 1300 ml Intake Oral 360 ml 200 ml IV Total 900 ml 1100 ml # Voids 4 3 Laboratory Tests 08/11/20 10:00: White Blood Count 5.4, Red Blood Count 5.14, Hemoglobin 14.4, Hematocrit 44.9, Mean Corpuscular Volume 87, Mean Corpuscular Hemoglobin 28.0, Mean Corpuscular Hemoglobin Concent 32.0, Red Cell Distribution Width 12.8, Platelet Count 303, Mean Platelet Volume 6.3L, Neutrophils (%) (Auto) 60.3, Lymphocytes (%) (Auto) 31.9, Monocytes (%) (Auto) 5.0, Eosinophils (%) (Auto) 2.2, Basophils (%) (Auto) 0.6, Sodium Level 144, Potassium Level 3.8, Chloride Level 107, Carbon Dioxide Level 30, Anion Gap 7, Blood Urea Nitrogen 9, Creatinine 0.6, Estimat Glomerular Filtration Rate > 60, Glucose Level 110H, Calcium Level 8.8, Total Bilirubin 0.4, Aspartate Amino Transf (AST/SGOT) 26, Alanine Aminotransferase (ALT/SGPT) 76, Alkaline Phosphatase 77, Total Protein 7.7, Albumin 3.2L, Globulin 4.5, Albumin/Globulin Ratio 0.7L, Amylase Level 34, Lipase 204 Current Medications Medications (Trade) Dose Ordered Sig/Benny Route PRN Reason Start Time Stop Time Status Last Admin Dose Admin Morphine Sulfate (Morphine Sulfate) 2 mg Q4H PRN IVP For Pain 08/09/20 21:30 08/16/20 21:29 Morphine Sulfate (Morphine Sulfate) 4 mg EVERY 3 HOURS PRN IVP For Pain (MODERATE/SEVERE) 08/09/20 21:30 08/16/20 21:29 Ondansetron HCl (Zofran) 4 mg Q6H PRN IVP Nausea & Vomiting 08/09/20 21:30 09/08/20 21:29 Sodium Chloride 1,000 ml @ 100 mls/hr Q10H IV 08/09/20 21:30 09/08/20 21:29 08/11/20 12:56 Assessment/Plan Assessment/Plan Progress Note HPI: This is a 55-year-old woman with prior h/o cholecystectomy,admitted with pancreatitis, had c/o severe epigastric pain ongoing for 3 days. Improving symptoms, tolerating diet - being advanced PMH: Notable for sciatica, hypertension, diabetes, and lap band. MEDICATIONS: Reviewed and reconciled. SOCIAL HISTORY: Otherwise negative. PHYSICAL EXAMINATION: Vital signs noted GENERAL: A well-developed female. VITAL SIGNS: Reviewed and otherwise negative. NECK: Supple. LUNGS: Clear. CARDIAC: S1 and S2. Regular rate and rhythm. ABDOMEN: Soft. No tenderness. EXTREMITIES: No cyanosis, clubbing, or edema. LABORATORY: noted Imaging: noted Impression: 1. Pancreatitis. 2. Abdominal pain. 3. Previous Cholecystectomy 4. Diabetes per history. 5. Hypertension per history. Plan: Advance diet per GI antiemetics pain control GI/Surgical follow up [employer] medications Edwardo Garcia MD Aug 11, 2020 16:13
--- NOTE | 2020-08-11 18:52 | NUR ---
NURSE HAND-OFF: Important Events on Shift:[cardiac diet] Patient Status: stable Diet: [cardiac] Pending Orders: Pending Results/Labs: Pending MD notification: Latest Vital Signs: Temperature 99.0 , Pulse 77 , B/P 147 /88 , Respiratory Rate 18 , O2 SAT 98 , Room Air, O2 Flow Rate 1.0 . Vital Sign Comment: stable Latest Paris Fall Score: 35 Fall Risk: Medium Risk Safety Measures: Call light Within Reach, Bed Alarm Zone 1, Side Rails Side Rails x2, Bed position Low and Locked. Fall Precautions: Report given to Ameya RN.
--- NOTE | 2020-08-11 19:10 | NUR ---
NURSE NOTES: The patient is alert and stable and doesn't appear to be in any distress at this time. She is able to ambulate to the bathroom with a steady gait.The Resp is even and unlabored and the Bilateral lungs sounds are all clear on auscultation.The patient has a left AC 20 g that is patent and asymptomatic. will continue to monitor as indicated
--- NOTE | 2020-08-12 05:46 | NUR ---
NURSE NOTES: The patient is alert and was able to sleep all night long and does't apper to be in any active distress at this time.will continue to monitor
[2020-08-12 07:02] LABS: BASOPHILS % (AUTO) 0.7 % (0.0-2.0); EOSINOPHILS % (AUTO) 3.2 % (0.0-3.0); HEMATOCRIT 41.4 % (37.0-47.0); HEMOGLOBIN 13.6 G/DL (12.0-16.0); LYMPHOCYTES % (AUTO) 30.1 % (20.0-45.0); MEAN CORPUSCULAR VOLUME 85 FL (80-99); MONOCYTES % (AUTO) 6.5 % (1.0-10.0); NEUTROPHILS % (AUTO) 59.5 % (45.0-75.0); PLATELET COUNT 313 K/UL (150-450); RED BLOOD COUNT 4.85 M/UL (4.20-5.40); RED CELL DISTRIBUTION WIDTH 12.6 % (11.6-14.8); WHITE BLOOD COUNT 6.4 K/UL (4.8-10.8)
[2020-08-12 07:17] LABS: ALANINE AMINOTRANSFERASE 59 U/L (12-78); ALBUMIN 2.9 G/DL (3.4-5.0); ALBUMIN/GLOBULIN RATIO 0.7 (1.0-2.7); ALKALINE PHOSPHATASE 68 U/L (46-116); ANION GAP 7 mmol/L (5-15); ASPARTATE AMINO TRANSFERASE 18 U/L (15-37); BILIRUBIN,TOTAL 0.3 MG/DL (0.2-1.0); BLOOD UREA NITROGEN 12 mg/dL (7-18); CARBON DIOXIDE 28 MMOL/L (21-32); CHLORIDE 108 MMOL/L (98-107); CREATININE 0.6 MG/DL (0.55-1.30); POTASSIUM 3.8 MMOL/L (3.5-5.1); SODIUM 142 MMOL/L (136-145)
[2020-08-12 07:25] LABS: AMYLASE 34 U/L (25-115)
--- NOTE | 2020-08-12 08:02 | NUR ---
NURSE HAND-OFF: Important Events on Shift:Alert and cooperative Patient Status: Diet: Pending Orders: Pending Results/Labs: Pending MD notification: Latest Vital Signs: Temperature 99.0 , Pulse 77 , B/P 147 /88 , Respiratory Rate 18 , O2 SAT 98 , Room Air, O2 Flow Rate 1.0 . Vital Sign Comment: Latest Paris Fall Score: 35 Fall Risk: Medium Risk Safety Measures: Call light Within Reach, Bed Alarm Zone 1, Side Rails Side Rails x2, Bed position Low and Locked. Fall Precautions: Report given to .
--- NOTE | 2020-08-12 10:20 | General Progress Note ---
Subjective Allergies: Coded Allergies: No Known Allergies (Unverified , 10/13/16) Subjective stable tolerating diet d/w gi and cleared Objective Last 24 Hour Vital Signs Date Time Temp Pulse Resp B/P (MAP) Pulse Ox O2 Delivery O2 Flow Rate FiO2 08/11/20 21:00 Room Air 08/11/20 16:00 99.0 77 18 147/88 (107) 98 08/11/20 12:00 97.8 103 20 138/82 (100) 98 Intake and Output 08/11/20 08/12/20 19:00 07:00 Intake Total 675 ml 825 ml Balance 675 ml 825 ml Intake Oral 600 ml IV Total 75 ml 825 ml # Voids 4 Laboratory Tests 08/12/20 05:15: White Blood Count 6.4, Red Blood Count 4.85, Hemoglobin 13.6, Hematocrit 41.4, Mean Corpuscular Volume 85, Mean Corpuscular Hemoglobin 28.1, Mean Corpuscular Hemoglobin Concent 32.9, Red Cell Distribution Width 12.6, Platelet Count 313, Mean Platelet Volume 6.4L, Neutrophils (%) (Auto) 59.5, Lymphocytes (%) (Auto) 30.1, Monocytes (%) (Auto) 6.5, Eosinophils (%) (Auto) 3.2H, Basophils (%) (Auto) 0.7, Sodium Level 142, Potassium Level 3.8, Chloride Level 108H, Carbon Dioxide Level 28, Anion Gap 7, Blood Urea Nitrogen 12, Creatinine 0.6, Estimat Glomerular Filtration Rate > 60, Glucose Level 110H, Calcium Level 9.0, Total Bilirubin 0.3, Aspartate Amino Transf (AST/SGOT) 18, Alanine Aminotransferase (ALT/SGPT) 59, Alkaline Phosphatase 68, Total Protein 7.2, Albumin 2.9L, Globulin 4.3, Albumin/Globulin Ratio 0.7L, Amylase Level 34, Lipase 260 Height (Feet): 5 Height (Inches): 0.00 Weight (Pounds): 239 Objective WDWN NAD clear breath sounds bilaterally without rhonchi or wheeze [id number] without MRG NABS nontender no HSM no CCE nonfocal Assessment/Plan Assessment/Plan: 1. Pancreatitis. 2. Abdominal pain. 3. Diabetes per history. 4. Hypertension per history. PLAN dc home if ok with gi bland diet defer to gi for further recommendations follow up with PMD impression, plan, and exam edited and reviewed in detail care discussed with Claudy Sow MD Aug 12, 2020 10:20
--- NOTE | 2020-08-12 11:34 | Surgery Progress Note ---
Surgery Progress Note Subjective Symptoms: improved, pain absent, tolerating diet, voiding well, passing flatus, BM Objective Last 24 Hour Vital Signs Date Time Temp Pulse Resp B/P (MAP) Pulse Ox O2 Delivery O2 Flow Rate FiO2 08/11/20 21:00 Room Air 08/11/20 16:00 99.0 77 18 147/88 (107) 98 08/11/20 12:00 97.8 103 20 138/82 (100) 98 I&O Intake and Output 08/11/20 08/12/20 19:00 07:00 Intake Total 675 ml 825 ml Balance 675 ml 825 ml Intake Oral 600 ml IV Total 75 ml 825 ml # Voids 4 Cardiovascular: RSR Respiratory: clear Abdomen: soft, flat, non-tender, present bowel sounds, non-distended Extremities: no edema, no tenderness, no cyanosis Laboratory Tests Test 08/12/20 05:15 White Blood Count 6.4 K/UL (4.8-10.8) Red Blood Count 4.85 M/UL (4.20-5.40) Hemoglobin 13.6 G/DL (12.0-16.0) Hematocrit 41.4 % (37.0-47.0) Mean Corpuscular Volume 85 FL (80-99) Mean Corpuscular Hemoglobin 28.1 PG (27.0-31.0) Mean Corpuscular Hemoglobin Concent 32.9 G/DL (32.0-36.0) Red Cell Distribution Width 12.6 % (11.6-14.8) Platelet Count 313 K/UL (150-450) Mean Platelet Volume 6.4 FL (6.5-10.1) L Neutrophils (%) (Auto) 59.5 % (45.0-75.0) Lymphocytes (%) (Auto) 30.1 % (20.0-45.0) Monocytes (%) (Auto) 6.5 % (1.0-10.0) Eosinophils (%) (Auto) 3.2 % (0.0-3.0) H Basophils (%) (Auto) 0.7 % (0.0-2.0) Sodium Level 142 MMOL/L (136-145) Potassium Level 3.8 MMOL/L (3.5-5.1) Chloride Level 108 MMOL/L (98-107) H Carbon Dioxide Level 28 MMOL/L (21-32) Anion Gap 7 mmol/L (5-15) Blood Urea Nitrogen 12 mg/dL (7-18) Creatinine 0.6 MG/DL (0.55-1.30) Estimat Glomerular Filtration Rate > 60 mL/min (>60) Glucose Level 110 MG/DL (74-106) H Calcium Level 9.0 MG/DL (8.5-10.1) Total Bilirubin 0.3 MG/DL (0.2-1.0) Aspartate Amino Transf (AST/SGOT) 18 U/L (15-37) Alanine Aminotransferase (ALT/SGPT) 59 U/L (12-78) Alkaline Phosphatase 68 U/L (46-116) Total Protein 7.2 G/DL (6.4-8.2) Albumin 2.9 G/DL (3.4-5.0) L Globulin 4.3 g/dL Albumin/Globulin Ratio 0.7 (1.0-2.7) L Amylase Level 34 U/L (25-115) Lipase 260 U/L (73-393) Plan Problems: (1) Acute pancreatitis Assessment & Plan: [id number] hx cholecystectomy presented with abdominal pain. epigastric. 3 days. no n/v//f.c lipase elevated now resolved. CT reviewed states feels better but epigastric cramping likely med related okay for diet will follow with exam thank you d/c planning outpatient f/u with pcp and gi The liver is unremarkable. The gallbladder is surgically absent. The spleen is normal. The pancreas is unremarkable. Adrenal glands are normal. There are no renal calculi. The aorta is normal in caliber. Retroperitoneum is free of adenopathy. The appendix is normal. There is a calcification in the peritoneum on the left side, likely postinflammatory. The bowel is normal caliber. The bladder is collapsed. There is an IUD in the uterus. A fat-containing mass is noted in the left ovary measuring 5.4 x 3.7 x 4.3 cm. There are also some nonfatty elements within it. No evidence of significant fluid in the pelvis. There is narrowing and sclerosis with vacuum disc at L5-S1. Slight anterolisthesis of L4 on L5 is noted. Posterior facet degenerative change is noted at L4-5 and L5-S1. Impression: Previous cholecystectomy. Left ovarian dermoid. IUD in the uterus. Degenerative changes in the spine with grade 1 anterolisthesis of L4 on L5. No evidence of urinary calculi. Normal appendix. (2) Diabetes (3) HTN (hypertension) (4) Sciatica (5) Superficial phlebitis (6) Degenerative lumbar spinal stenosis (7) Tonsillitis with exudate (8) Bulging lumbar disc (9) Lumbar contusion Evaristo Horn Aug 12, 2020 11:34
--- NOTE | 2020-08-12 14:43 | NUR ---
[employer] FAXED TO [facility] kennedy#[phone] fax# [phone]
--- NOTE | 2020-08-12 16:56 | NUR ---
NURSE NOTES: Received order for d/c home. Discharge instructions and belongings list given to patient. IV removed prior to d/c. patient left the floor with no signs of distress or other issues at this time. I will f/u as needed.
--- NOTE | 2020-08-12 22:47 | General Progress Note ---
Subjective Allergies: Coded Allergies: No Known Allergies (Unverified , 10/13/16) Subjective patient seen early am feels well no abd pain N/V Objective Last 24 Hour Vital Signs Date Time Temp Pulse Resp B/P (MAP) Pulse Ox O2 Delivery O2 Flow Rate FiO2 08/12/20 09:00 Room Air Intake and Output 08/11/20 08/12/20 19:00 07:00 Intake Total 675 ml 825 ml Balance 675 ml 825 ml Intake Oral 600 ml IV Total 75 ml 825 ml # Voids 4 Laboratory Tests 08/12/20 05:15: White Blood Count 6.4, Red Blood Count 4.85, Hemoglobin 13.6, Hematocrit 41.4, Mean Corpuscular Volume 85, Mean Corpuscular Hemoglobin 28.1, Mean Corpuscular Hemoglobin Concent 32.9, Red Cell Distribution Width 12.6, Platelet Count 313, Mean Platelet Volume 6.4L, Neutrophils (%) (Auto) 59.5, Lymphocytes (%) (Auto) 30.1, Monocytes (%) (Auto) 6.5, Eosinophils (%) (Auto) 3.2H, Basophils (%) (Auto) 0.7, Sodium Level 142, Potassium Level 3.8, Chloride Level 108H, Carbon Dioxide Level 28, Anion Gap 7, Blood Urea Nitrogen 12, Creatinine 0.6, Estimat Glomerular Filtration Rate > 60, Glucose Level 110H, Calcium Level 9.0, Total Bilirubin 0.3, Aspartate Amino Transf (AST/SGOT) 18, Alanine Aminotransferase (ALT/SGPT) 59, Alkaline Phosphatase 68, Total Protein 7.2, Albumin 2.9L, Glob ulin 4.3, Albumin/Globulin Ratio 0.7L, Amylase Level 34, Lipase 260 Height (Feet): 5 Height (Inches): 0.00 Weight (Pounds): 239 Objective WDWN NCAT supple CTA RR abd soft NT no edema Assessment/Plan Assessment/Plan: (1) Acute pancreatitis ICD Codes: K85.90 - Acute pancreatitis without necrosis or infection, unspecified SNOMED: 819075009 Qualifiers: Qualified Codes: K85.90 - Acute pancreatitis without necrosis or infection, unspecified (2) HTN (hypertension) ICD Codes: I10 - Essential (primary) hypertension SNOMED: 11142109 (3) Diabetes ICD Codes: E11.9 - Type 2 diabetes mellitus without complications SNOMED: 51767271 Assessment/Plan: ? meds related post cholecystectomy advance diet ivf repeat labs will fu Ryan Barba MD Aug 12, 2020 22:47
== END 2020-08-12 16:58 | disposition home or self-care (01) | DRG 282 ==
LOC: EMR 14:28 → 4E 15:53 → EDBEDREQ 17:57 → 4E 20:22
DX: K85.90 Acute pancreatitis without necrosis or infection, unspecified (principal); E11.9 Type 2 diabetes mellitus without complications; I10 Essential (primary) hypertension; M51.26 Other intervertebral disc displacement, lumbar region; Z90.49 Acquired absence of other specified parts of digestive tract; M48.061 Spinal stenosis, lumbar region without neurogenic claudication; Z98.84 Bariatric surgery status
CPT/HCPCS: 36415; 71045; 74176; 80053; 81003; 82150; 83690; 84484; 85025; 85610; 85730; 93005; 96361; 96374; 96375; 99285; J2405; J7030; J8499